=== PATIENT | female | born 1945 | race Caucasian/White ===

== ENCOUNTER 2017-12-02 13:43 | Inpatient (IN) | payer MEDICARE ==
--- NOTE | 2017-12-02 14:25 | ED Physician Chart ---
ED Chief Complaint/HPI - Patient Information Date Seen:: 12/02/17 Time Seen:: 14:16 Chief Complaint:: Aniety and depression History of Present Illness:: 72 yo female had anxiety and depression for 1 year and 3 months. She had been taking 3 medications and ativan 0.5 mg tid prn. Patient took ativan at 9am and 1pm today, still felt anxious, was unable to sit still, hit herself. Her psychiatrist Dr. Sultana Geller recommended the patient to come to [place] [facility] for further evaluation. The patient was hospitalized at [facility] for 1.5 weeks in August 2017 for anxiety and depression. Allergies:: Allergies Allergy/AdvReac Type Severity Reaction Status Date / Time No Known Allergies Allergy Verified 12/02/17 13:58 ED Review of Systems - Review of Systems General/Constitutional: No fever Skin: No skin lesions Head: No headache Eyes: No loss of vision ENT: No earache Neck: No neck pain Cardio Vascular: No chest pain Pulmonary: No SOB GI: No nausea, No vomiting Musculoskeletal: No bone or joint pain Psychiatric: Depression, Anxiety ED Past Medical History - Past Medical History Past Medical History: HTN, Dyslipidemia Social History: Non Smoker, No Alcohol, No Drug Use Surgical History: Hysterectomy, other (Right knee surgery) Psychiatricy History: Depression, Other (Anxiety ) Family Medical History - Family Member Mother History Unknown: Yes ED Physical Exam - Physical Examination General/Constitutional: Awake, Alert Head: Atraumatic Eyes: PERRL Skin: No skin lesions ENMT: Nasal exam nl Neck: No nuchal rigidity Respiratory: Clear to Auscultation, No Wheeze/Rhonchi/Rales Cardio Vascular: RRR, No murmur, gallop, rubs, NL S1 S2 GI: No tenderness/rebounding/guarding Extremities: normal strength in all extremities Neuro/Psych: No focal deficits ED Labs/Radiology/EKG Results - Radiology Results Results: CXR: no consolidation ED Assessment - Assessment General Assessment: Depression Anxiety Assessment/Comments:: CBC, CMP, UA CXR, EKG Psych evaluation ED Septic Shock - . Is Septic Shock (SBP<90, OR Lactate>4 mmol\L) present?: No ED Reassessment (Disposition) - Reassessment Reassessment Condition:: Unchanged - Patient Disposition Discharge/Transfer:: Geropsych w/in this hosp Admitting Medical Physician:: Vishal Montgomery Admitting Psych Physician:: Reynaldo Caruso
[2017-12-02 14:53] LABS: URINE MICROSCOPIC INDICATED? YES; URINE SOURCE RANDOM
[2017-12-02 14:55] LABS: % BASOPHILS 0.3 % (0.0-2.0); % EOSINOPHILS 0.8 % (0.0-5.0); % LYMPHOCYTES 24.2 % (20.0-50.0); % MONOCYTES 7.9 % (2.0-10.0); % NEUTROPHILS 66.8 % (40.0-80.0); HEMATOCRIT 41.8 % (41.0-60); LYMPHOCYTE ABSOLUTE 1.4 Th/cmm (1.5-3.0); MEAN CELL VOLUME 90.6 fl (81-100); MEAN CORPUSCULAR HEMOGLOBIN 30.3 pg (27.0-31.0); MEAN CORPUSCULAR HGB CONC 33.4 pg (28.0-36.0); MEAN PLATELET VOLUME 6.4 fl; MONOCYTE ABSOLUTE 0.5 Th/cmm (0.3-1.0); NEUTROPHILE ABSOLUTE 3.9 Th/cmm (1.8-8.0); PLATELET COUNT 224 Th/cmm (150-400); RED BLOOD COUNT 4.62 Mil/cmm (3.80-5.20); RED CELL DISTRIBUTION WIDTH 13.4 % (11.5-20.0); WHITE BLOOD COUNT 5.8 Th/cmm (4.8-10.8)
[2017-12-02 14:57] LABS: URINE BILIRUBIN NEGATIVE (NEGATIVE); URINE BLOOD TRACE (NEGATIVE); URINE GLUCOSE (UA) NEGATIVE (NEGATIVE); URINE KETONE NEGATIVE (NEGATIVE); URINE LEUKOCYTE ESTERASE NEGATIVE (NEGATIVE); URINE NITRATE NEGATIVE (NEGATIVE); URINE PH 6.5 (4.6 - 8.0); URINE PROTEIN NEGATIVE (NEGATIVE); URINE UROBILINOGEN 0.2 E.U./dL (0.2 - 1.0)
[2017-12-02 15:04] LABS: URINE BACTERIA NONE SEEN /hpf (NONE SEEN); URINE CLARITY CLEAR (CLEAR); URINE COLOR YELLOW; URINE EPITHELIAL CELLS NONE SEEN /lpf (FEW); URINE RBC 0-2 /hpf (0-5); URINE WBC NONE SEEN /hpf (0-5)
[2017-12-02 15:12] LABS: ALB/GLOB RATIO 1.1 (1.0-1.8); ALBUMIN 4.1 gm/dL (3.7-5.3); ALKALINE PHOSPHATASE 46 U/L (34-104); ANION GAP 8.4 (7.0-16.0); BILIRUBIN,TOTAL 0.4 mg/dL (0.3-1.0); BUN - UREA NITROGEN 17 mg/dL (7-25); CARBON DIOXIDE 29.9 mEq/L (21.0-31.0); CHLORIDE 106 mEq/L (98-107); CREATININE - SERUM 0.7 mg/dL (0.6-1.2); GLUCOSE 87 mg/dL (70-105); POTASSIUM SERUM 4.3 mEq/L (3.5-5.1); SGOT 18 U/L (13-39); SGPT/ALT 14 U/L (7-52); SODIUM SERUM 140 mEq/L (136-145); TOTAL PROTEIN,SERUM 7.7 gm/dL (6.0-8.3)
[2017-12-02 18:27] VITALS: BP 137/91
[2017-12-02] MEDS ORDERED: Maalox 30 mL Cup PO PRN (20:48)
[2017-12-02] MEDS ORDERED: Magnesium Hydroxide (MOM) 30 mL UDC PO PRN (20:48)
--- NOTE | 2017-12-03 08:16 | Diagnostic Imaging Report ---
Portable chest x-ray HISTORY: Shortness of breath Heart size difficult to assess with portable technique, but appears to be somewhat enlarged. No focal bony processes. No hilar or mediastinal abnormalities. IMPRESSION: 1. No acute pulmonary processes 2. Suggestion of cardiomegaly
[2017-12-03] MEDS: Multivitamin Tab PO SCH (09:39)
--- NOTE | 2017-12-03 11:35 | Internal Medicine Prog Note ---
Internal Medicine Subjective - Subjective Service Date: 12/03/17 ([id number]) Internal Medicine Objective - Results Result Diagrams: 12/02/17 14:45 12/02/17 14:45 Recent Labs: Laboratory Last Values WBC 5.8 Th/cmm (4.8-10.8) 12/02/17 14:45 RBC 4.62 Mil/cmm (3.80-5.20) 12/02/17 14:45 Hgb 14.0 gm/dL (12-16) 12/02/17 14:45 Hct 41.8 % (41.0-60) 12/02/17 14:45 MCV 90.6 fl (81-100) 12/02/17 14:45 MCH 30.3 pg (27.0-31.0) 12/02/17 14:45 MCHC Differential 33.4 pg (28.0-36.0) 12/02/17 14:45 RDW 13.4 % (11.5-20.0) 12/02/17 14:45 Plt Count 224 Th/cmm (150-400) 12/02/17 14:45 MPV 6.4 fl 12/02/17 14:45 Neutrophils % 66.8 % (40.0-80.0) 12/02/17 14:45 Lymphocytes % 24.2 % (20.0-50.0) 12/02/17 14:45 Monocytes % 7.9 % (2.0-10.0) 12/02/17 14:45 Eosinophils % 0.8 % (0.0-5.0) 12/02/17 14:45 Basophils % 0.3 % (0.0-2.0) 12/02/17 14:45 Sodium 140 mEq/L (136-145) 12/02/17 14:45 Potassium 4.3 mEq/L (3.5-5.1) 12/02/17 14:45 Chloride 106 mEq/L (98-107) 12/02/17 14:45 Carbon Dioxide 29.9 mEq/L (21.0-31.0) 12/02/17 14:45 Anion Gap 8.4 (7.0-16.0) 12/02/17 14:45 BUN 17 mg/dL (7-25) 12/02/17 14:45 Creatinine 0.7 mg/dL (0.6-1.2) 12/02/17 14:45 Est GFR ( Amer) TNP 12/02/17 14:45 Est GFR (Non-Af Amer) TNP 12/02/17 14:45 BUN/Creatinine Ratio 24.3 12/02/17 14:45 Glucose 87 mg/dL (70-105) 12/02/17 14:45 Calcium 10.0 mg/dL (8.6-10.3) 12/02/17 14:45 Total Bilirubin 0.4 mg/dL (0.3-1.0) 12/02/17 14:45 AST 18 U/L (13-39) 12/02/17 14:45 ALT 14 U/L (7-52) 12/02/17 14:45 Alkaline Phosphatase 46 U/L (34-104) 12/02/17 14:45 Total Protein 7.7 gm/dL (6.0-8.3) 12/02/17 14:45 Albumin 4.1 gm/dL (3.7-5.3) 12/02/17 14:45 Globulin 3.6 gm/dL 12/02/17 14:45 Albumin/Globulin Ratio 1.1 (1.0-1.8) 12/02/17 14:45 TSH 0.75 uIU/ml (0.34-5.60) 12/02/17 14:45 Urine Source RANDOM 12/02/17 14:30 Urine Color YELLOW 12/02/17 14:30 Urine Clarity CLEAR (CLEAR) 12/02/17 14:30 Urine pH 6.5 (4.6 - 8.0) 12/02/17 14:30 Ur Specific [place] 1.010 (1.005-1.030) 12/02/17 14:30 Urine Protein NEGATIVE mg/dL (NEGATIVE) 12/02/17 14:30 Urine Glucose (UA) NEGATIVE mg/dL (NEGATIVE) 12/02/17 14:30 Urine Ketones NEGATIVE mg/dL (NEGATIVE) 12/02/17 14:30 Urine Blood TRACE (NEGATIVE) 12/02/17 14:30 Urine Nitrate NEGATIVE (NEGATIVE) 12/02/17 14:30 Urine Bilirubin NEGATIVE (NEGATIVE) 12/02/17 14:30 Urine Urobilinogen 0.2 E.U./dL (0.2 - 1.0) 12/02/17 14:30 Ur Leukocyte Esterase NEGATIVE (NEGATIVE) 12/02/17 14:30 Urine RBC 0-2 /hpf (0-5) 12/02/17 14:30 Urine WBC NONE SEEN /hpf (0-5) 12/02/17 14:30 Ur Epithelial Cells NONE SEEN /lpf (FEW) 12/02/17 14:30 Urine Bacteria NONE SEEN /hpf (NONE SEEN) 12/02/17 14:30 - Physical Exam Vitals and I&O: Vital Signs Temp 98.2 F 12/02/17 20:00 Pulse 66 12/03/17 09:42 Resp 19 12/02/17 20:00 BP 136/89 12/03/17 09:42 Pulse Ox 95 12/02/17 20:00 Intake & Output 12/02/17 12/03/17 12/03/17 18:59 06:59 18:59 Other: Stool Characteristics Soft Active Medications: Current Medications Acetaminophen (Tylenol) 650 mg PO Q4HR PRN PRN Reason: Mild Pain / Temp above 100 Stop: 01/31/18 20:47 Al Hydrox/Mg Hydrox/Simethicone (Maalox) 30 ml PO Q4HR PRN PRN Reason: GI DISTRESS Stop: 01/31/18 20:47 Escitalopram Oxalate (Lexapro) 20 mg PO DAILY TRACI PRN Reason: Protocol Stop: 02/01/18 08:59 Last Admin: 12/03/17 09:39 Dose: 20 mg Lisinopril (Zestril) 10 mg PO DAILY TRACI Stop: 02/01/18 08:59 Last Admin: 12/03/17 09:42 Dose: 10 mg Lorazepam (Ativan) 0.5 mg PO TID PRN; Protocol PRN Reason: Anxiety Stop: 01/31/18 20:28 Last Admin: 12/03/17 10:06 Dose: 0.5 mg Magnesium Hydroxide (Milk Of Magnesia) 30 ml PO HS PRN PRN Reason: Constipation Mirtazapine (Remeron) 45 mg PO HS TRACI Stop: 01/31/18 20:59 Last Admin: 12/02/17 22:00 Dose: 45 mg Multivitamins/Vitamin C (Theragran) 1 tab PO DAILY TRACI Stop: 02/01/18 08:59 Last Admin: 12/03/17 09:39 Dose: 1 tab Risperidone (Risperdal) 0.5 mg PO HS TRACI PRN Reason: Protocol Stop: 01/31/18 20:59 Last Admin: 12/02/17 22:00 Dose: 0.5 mg Triamterene/HCTZ (Dyazide) 1 cap PO DAILY TRACI Stop: 02/01/18 08:59 Last Admin: 12/03/17 09:42 Dose: 1 cap Zolpidem Tartrate (Ambien) 5 mg PO HS PRN PRN Reason: Insomnia Stop: 01/31/18 20:47 Last Admin: 12/02/17 22:20 Dose: 5 mg Internal Medicine Assmt/Plan - Assessment Assessment: htn dyslipidemia major depression anxiety
--- NOTE | 2017-12-03 18:11 | History & Physical ---
ADMIT DATE: 12/02/2017 CHIEF COMPLAINT: Anxiety, depression. HISTORY OF PRESENT ILLNESS: This is a 72-year-old female who was admitted to the Geropsych Unit due to anxiety and depression for about a year and a half. The patient was referred by her own psychiatrist to be evaluated in the ER. The patient is now admitted here to the Geropsych Unit. PAST MEDICAL HISTORY: Hypertension, dyslipidemia. SOCIAL HISTORY: The patient denies any alcohol, illicit drug usage, or any tobacco smoking. SURGICAL HISTORY: Hysterectomy, right knee surgery. FAMILY HISTORY: Noncontributory. REVIEW OF SYSTEMS: GENERAL: Denies any fevers and chills. CARDIOVASCULAR: Denies chest pain. RESPIRATORY: Denies shortness of breath. GASTROINTESTINAL: Denies nausea, vomiting, abdominal pain. GENITOURINARY: Denies increased frequency or dysuria. NEUROLOGIC: No headaches, seizures, or syncope. All other systems are reviewed and are negative. PHYSICAL EXAMINATION: GENERAL: This is an elderly female, awake, alert, in no apparent distress. VITAL SIGNS: Temperature 98.2, heart rate 78, blood pressure 131/91, respirations 18, O2 95%. HEAD: Normocephalic, atraumatic. NECK: Supple. No mass. LUNGS: Clear bilaterally. HEART: Regular rhythm. ABDOMEN: Soft, nontender. LABORATORY DATA AND DIAGNOSTIC STUDIES: WBC 5.8, H and H 14.0 and 41.8, and platelets of 224. Sodium 140, potassium 4.3, chloride 106, BUN 17, creatinine 0.7. The patient had a chest x-ray done, which shows NAD. ASSESSMENT: 1. Hypertension. 2. Dyslipidemia. 3. Major depression. 4. Anxiety. PLAN: We will adjust the patient's hypertension medications accordingly. Safety precautions will be initiated. We will continue to monitor this patient. JOB# [id number]
--- NOTE | 2017-12-04 01:50 | Psychosocial Evaluation ---
DATE OF SERVICE: 12/03/2017 IDENTIFYING DATA: The patient is a 72-year-old woman, , and living with her family. Information obtained directly by interviewing the patient as well as reviewing the admission papers and they are reliable. JUSTIFICATION FOR HOSPITALIZATION: The patient is admitted here on a voluntary basis in view of her acute depression and anxiety and feelings of helplessness and hopelessness. CHIEF COMPLAINT: "I need some help, it has been for year and 3 months, I cannot go on like this." HISTORY OF PRESENT ILLNESS: This is one of multiple psychiatric hospitalizations for this patient who has been diagnosed to have major depressive disorder and is being followed up by ____ on an outpatient basis. The patient is reported to have been getting extremely anxious and depressed and has been still reducing. The patient has been stating that she is sick and tired of being like this and wanted to end her life and the patient's family got concerned and then brought her over here for stabilization. At the time of the hospitalization, the patient has been on Lexapro 20 mg in the morning, Remeron 45 mg at bedtime, Ativan 1.5 mg per day, and the patient is also on Risperdal 0.5 mg at bedtime. The patient has been tried on Zoloft, Paxil, and the patient has not been getting any better. The patient's coping skills at this time are noted to be extremely poor. PAST PSYCHIATRIC HISTORY: Please refer to the above. MEDICAL HISTORY AND PHYSICAL EXAMINATION: Requested to be done by Dr. Montgomery. The patient has a history of hypertension and hypercholesterolemia. ALLERGIES: The patient is not allergic to any medications. SUBSTANCE ABUSE HISTORY: None. PHYSICAL OR SEXUAL ABUSE HISTORY: None. LEGAL PROBLEMS: None. SOCIAL HISTORY: The patient is , living with her family. The patient has five children. STRENGTH AND ASSETS: The patient is motivated. MENTAL STATUS EXAMINATION: The patient is a 72-year-old, looking her stated age, superficially cooperative. Eye contact is poor. Mood is noted to be irritable. Affect is constricted. Insight and judgment at this time are noted to be still impaired. Impulse control is noted to be poor. Coping skills are noted to be poor. The patient has been having difficult time to cope with the stress. The patient is acutely anxious. The patient is also noted to be paranoid. The patient is alert and oriented x 3. The patient's insight and judgment at this time are noted to be still impaired. Impulse control seems to be poor. The patient is suicidal with plans. No homicidal ideation is noted. The patient has paranoia. The patient is fearful that something bad is going to be happen. The patient is alert and oriented x 3. DIAGNOSTIC IMPRESSION: AXIS I: Major depressive disorder, recurrent and severe with anxiety symptoms, rule out psychosis. AXIS II: None. AXIS III: Hypertension and hypercholesterolemia. IMMEDIATE TREATMENT PLAN: The patient is going to be placed on Cymbalta 30 mg and the patient's Risperdal is going to be discontinued. The patient is going to be placed on Zyprexa and Klonopin is going to be added. ESTIMATED LENGTH OF STAY: 3-5 days. DISCHARGE CRITERIA: When she no longer a threat to self or others and be able to cope up with the stress. [facility]# [id number]
[2017-12-04] MEDS: Multivitamin Tab PO SCH (08:37)
--- NOTE | 2017-12-04 12:13 | Internal Medicine Prog Note ---
Internal Medicine Subjective - Subjective Patient seen and examined:: with staff, chart reviewed Patient is:: awake, verbal, interactive, confused Per staff patient has:: no adverse event, no episodes of fall, poor appetite, confused, tolerating meds Internal Medicine Objective - Results Result Diagrams: 12/02/17 14:45 12/02/17 14:45 Recent Labs: Laboratory Last Values WBC 5.8 Th/cmm (4.8-10.8) 12/02/17 14:45 RBC 4.62 Mil/cmm (3.80-5.20) 12/02/17 14:45 Hgb 14.0 gm/dL (12-16) 12/02/17 14:45 Hct 41.8 % (41.0-60) 12/02/17 14:45 MCV 90.6 fl (81-100) 12/02/17 14:45 MCH 30.3 pg (27.0-31.0) 12/02/17 14:45 MCHC Differential 33.4 pg (28.0-36.0) 12/02/17 14:45 RDW 13.4 % (11.5-20.0) 12/02/17 14:45 Plt Count 224 Th/cmm (150-400) 12/02/17 14:45 MPV 6.4 fl 12/02/17 14:45 Neutrophils % 66.8 % (40.0-80.0) 12/02/17 14:45 Lymphocytes % 24.2 % (20.0-50.0) 12/02/17 14:45 Monocytes % 7.9 % (2.0-10.0) 12/02/17 14:45 Eosinophils % 0.8 % (0.0-5.0) 12/02/17 14:45 Basophils % 0.3 % (0.0-2.0) 12/02/17 14:45 Sodium 140 mEq/L (136-145) 12/02/17 14:45 Potassium 4.3 mEq/L (3.5-5.1) 12/02/17 14:45 Chloride 106 mEq/L (98-107) 12/02/17 14:45 Carbon Dioxide 29.9 mEq/L (21.0-31.0) 12/02/17 14:45 Anion Gap 8.4 (7.0-16.0) 12/02/17 14:45 BUN 17 mg/dL (7-25) 12/02/17 14:45 Creatinine 0.7 mg/dL (0.6-1.2) 12/02/17 14:45 Est GFR ( Amer) TNP 12/02/17 14:45 Est GFR (Non-Af Amer) TNP 12/02/17 14:45 BUN/Creatinine Ratio 24.3 12/02/17 14:45 Glucose 87 mg/dL (70-105) 12/02/17 14:45 Calcium 10.0 mg/dL (8.6-10.3) 12/02/17 14:45 Total Bilirubin 0.4 mg/dL (0.3-1.0) 12/02/17 14:45 AST 18 U/L (13-39) 12/02/17 14:45 ALT 14 U/L (7-52) 12/02/17 14:45 Alkaline Phosphatase 46 U/L (34-104) 12/02/17 14:45 Total Protein 7.7 gm/dL (6.0-8.3) 12/02/17 14:45 Albumin 4.1 gm/dL (3.7-5.3) 12/02/17 14:45 Globulin 3.6 gm/dL 12/02/17 14:45 Albumin/Globulin Ratio 1.1 (1.0-1.8) 12/02/17 14:45 TSH 0.75 uIU/ml (0.34-5.60) 12/02/17 14:45 Urine Source RANDOM 12/02/17 14:30 Urine Color YELLOW 12/02/17 14:30 Urine Clarity CLEAR (CLEAR) 12/02/17 14:30 Urine pH 6.5 (4.6 - 8.0) 12/02/17 14:30 Ur Specific [place] 1.010 (1.005-1.030) 12/02/17 14:30 Urine Protein NEGATIVE mg/dL (NEGATIVE) 12/02/17 14:30 Urine Glucose (UA) NEGATIVE mg/dL (NEGATIVE) 12/02/17 14:30 Urine Ketones NEGATIVE mg/dL (NEGATIVE) 12/02/17 14:30 Urine Blood TRACE (NEGATIVE) 12/02/17 14:30 Urine Nitrate NEGATIVE (NEGATIVE) 12/02/17 14:30 Urine Bilirubin NEGATIVE (NEGATIVE) 12/02/17 14:30 Urine Urobilinogen 0.2 E.U./dL (0.2 - 1.0) 12/02/17 14:30 Ur Leukocyte Esterase NEGATIVE (NEGATIVE) 12/02/17 14:30 Urine RBC 0-2 /hpf (0-5) 12/02/17 14:30 Urine WBC NONE SEEN /hpf (0-5) 12/02/17 14:30 Ur Epithelial Cells NONE SEEN /lpf (FEW) 12/02/17 14:30 Urine Bacteria NONE SEEN /hpf (NONE SEEN) 12/02/17 14:30 - Physical Exam Vitals and I&O: Vital Signs Temp 98.4 F 12/04/17 06:12 Pulse 68 12/04/17 08:37 Resp 18 12/04/17 06:12 BP 122/78 12/04/17 08:45 Pulse Ox 96 12/04/17 06:12 Intake & Output 12/03/17 12/04/17 12/04/17 18:59 06:59 18:59 Intake Total 480 Balance 480 Intake: Oral 480 Other: # Voids 1 Stool Characteristics Soft Active Medications: Current Medications Acetaminophen (Tylenol) 650 mg PO Q4HR PRN PRN Reason: Mild Pain / Temp above 100 Stop: 01/31/18 20:47 Al Hydrox/Mg Hydrox/Simethicone (Maalox) 30 ml PO Q4HR PRN PRN Reason: GI DISTRESS Stop: 01/31/18 20:47 Escitalopram Oxalate (Lexapro) 20 mg PO DAILY TRACI PRN Reason: Protocol Stop: 02/01/18 08:59 Last Admin: 12/04/17 08:37 Dose: 20 mg Lisinopril (Zestril) 10 mg PO DAILY TRACI Stop: 02/01/18 08:59 Last Admin: 12/04/17 08:37 Dose: 10 mg Lorazepam (Ativan) 0.5 mg PO TID PRN; Protocol PRN Reason: Anxiety Stop: 01/31/18 20:28 Last Admin: 12/04/17 06:56 Dose: 0.5 mg Magnesium Hydroxide (Milk Of Magnesia) 30 ml PO HS PRN PRN Reason: Constipation Mirtazapine (Remeron) 45 mg PO HS TRACI Stop: 01/31/18 20:59 Last Admin: 12/03/17 21:21 Dose: 45 mg Multivitamins/Vitamin C (Theragran) 1 tab PO DAILY TRACI Stop: 02/01/18 08:59 Last Admin: 12/04/17 08:37 Dose: 1 tab Risperidone (Risperdal) 0.5 mg PO HS TRACI PRN Reason: Protocol Stop: 01/31/18 20:59 Last Admin: 12/03/17 21:21 Dose: 0.5 mg Triamterene/HCTZ (Dyazide) 1 cap PO DAILY TRACI Stop: 02/01/18 08:59 Last Admin: 12/04/17 08:45 Dose: 1 cap Zolpidem Tartrate (Ambien) 5 mg PO HS PRN PRN Reason: Insomnia Stop: 01/31/18 20:47 Last Admin: 12/03/17 21:21 Dose: 5 mg General: demented HEENT: NC/AT, PERRLA Neck: Supple, No JVD, No LAD Lungs: CTAB Cardiovascular: RRR, Normal S1, Normal S2, with murmur Abdomen: soft, non-tender, positive bowel sound Extremities: excoriation Neurological: no change Internal Medicine Assmt/Plan - Assessment Assessment: - Assessment Assessment: htn dyslipidemia major depression anxiety - Plan Plan: cont on bp meds cont on statin fall precation dvt and gastritis prophylaxis maryann stout
--- NOTE | 2017-12-05 01:31 | Progress Notes ---
DATE: 12/04/2017 SUBJECTIVE: Staff was spoken to. The patient is interviewed. Mood is noted to be depressed. Affect is constricted. The patient is isolative and withdrawn. Insight and judgment at this time are noted to be still impaired. Impulse control seems to be poor. The patient is still insisting on ending her life. No side effects to the medications are noted. The patient is isolative and withdrawn. The patient has been presenting with a lot of anxiety. ASSESSMENT: The patient is still severely depressed and suicidal. PLAN: To continue the patient with the supportive therapy. I encouraged the patient to verbalize the concerns rather than to act out. JOB# [id number]
[2017-12-05] MEDS: Multivitamin Tab PO SCH (08:50)
--- NOTE | 2017-12-05 13:51 | Internal Medicine Prog Note ---
Internal Medicine Subjective - Subjective Service Date: 12/05/17 Patient is:: awake, verbal, interactive, confused Per staff patient has:: no adverse event, no episodes of fall, poor appetite, confused, tolerating meds Internal Medicine Objective - Results Result Diagrams: 12/02/17 14:45 12/02/17 14:45 Recent Labs: Laboratory Last Values WBC 5.8 Th/cmm (4.8-10.8) 12/02/17 14:45 RBC 4.62 Mil/cmm (3.80-5.20) 12/02/17 14:45 Hgb 14.0 gm/dL (12-16) 12/02/17 14:45 Hct 41.8 % (41.0-60) 12/02/17 14:45 MCV 90.6 fl (81-100) 12/02/17 14:45 MCH 30.3 pg (27.0-31.0) 12/02/17 14:45 MCHC Differential 33.4 pg (28.0-36.0) 12/02/17 14:45 RDW 13.4 % (11.5-20.0) 12/02/17 14:45 Plt Count 224 Th/cmm (150-400) 12/02/17 14:45 MPV 6.4 fl 12/02/17 14:45 Neutrophils % 66.8 % (40.0-80.0) 12/02/17 14:45 Lymphocytes % 24.2 % (20.0-50.0) 12/02/17 14:45 Monocytes % 7.9 % (2.0-10.0) 12/02/17 14:45 Eosinophils % 0.8 % (0.0-5.0) 12/02/17 14:45 Basophils % 0.3 % (0.0-2.0) 12/02/17 14:45 Sodium 140 mEq/L (136-145) 12/02/17 14:45 Potassium 4.3 mEq/L (3.5-5.1) 12/02/17 14:45 Chloride 106 mEq/L (98-107) 12/02/17 14:45 Carbon Dioxide 29.9 mEq/L (21.0-31.0) 12/02/17 14:45 Anion Gap 8.4 (7.0-16.0) 12/02/17 14:45 BUN 17 mg/dL (7-25) 12/02/17 14:45 Creatinine 0.7 mg/dL (0.6-1.2) 12/02/17 14:45 Est GFR ( Amer) TNP 12/02/17 14:45 Est GFR (Non-Af Amer) TNP 12/02/17 14:45 BUN/Creatinine Ratio 24.3 12/02/17 14:45 Glucose 87 mg/dL (70-105) 12/02/17 14:45 Calcium 10.0 mg/dL (8.6-10.3) 12/02/17 14:45 Total Bilirubin 0.4 mg/dL (0.3-1.0) 12/02/17 14:45 AST 18 U/L (13-39) 12/02/17 14:45 ALT 14 U/L (7-52) 12/02/17 14:45 Alkaline Phosphatase 46 U/L (34-104) 12/02/17 14:45 Total Protein 7.7 gm/dL (6.0-8.3) 12/02/17 14:45 Albumin 4.1 gm/dL (3.7-5.3) 12/02/17 14:45 Globulin 3.6 gm/dL 12/02/17 14:45 Albumin/Globulin Ratio 1.1 (1.0-1.8) 12/02/17 14:45 TSH 0.75 uIU/ml (0.34-5.60) 12/02/17 14:45 Urine Source RANDOM 12/02/17 14:30 Urine Color YELLOW 12/02/17 14:30 Urine Clarity CLEAR (CLEAR) 12/02/17 14:30 Urine pH 6.5 (4.6 - 8.0) 12/02/17 14:30 Ur Specific [place] 1.010 (1.005-1.030) 12/02/17 14:30 Urine Protein NEGATIVE mg/dL (NEGATIVE) 12/02/17 14:30 Urine Glucose (UA) NEGATIVE mg/dL (NEGATIVE) 12/02/17 14:30 Urine Ketones NEGATIVE mg/dL (NEGATIVE) 12/02/17 14:30 Urine Blood TRACE (NEGATIVE) 12/02/17 14:30 Urine Nitrate NEGATIVE (NEGATIVE) 12/02/17 14:30 Urine Bilirubin NEGATIVE (NEGATIVE) 12/02/17 14:30 Urine Urobilinogen 0.2 E.U./dL (0.2 - 1.0) 12/02/17 14:30 Ur Leukocyte Esterase NEGATIVE (NEGATIVE) 12/02/17 14:30 Urine RBC 0-2 /hpf (0-5) 12/02/17 14:30 Urine WBC NONE SEEN /hpf (0-5) 12/02/17 14:30 Ur Epithelial Cells NONE SEEN /lpf (FEW) 12/02/17 14:30 Urine Bacteria NONE SEEN /hpf (NONE SEEN) 12/02/17 14:30 - Physical Exam Vitals and I&O: Vital Signs Temp 98.5 F 12/05/17 05:59 Pulse 68 12/05/17 08:49 Resp 20 12/05/17 05:59 BP 121/85 12/05/17 08:49 Pulse Ox 96 12/05/17 05:59 Intake & Output 12/04/17 12/05/17 12/05/17 18:59 06:59 18:59 Intake Total 240 Balance 240 Weight (lbs) 128 lb Intake: Oral 240 Other: # Voids 3 # Bowel Movements 0 Active Medications: Current Medications Acetaminophen (Tylenol) 650 mg PO Q4HR PRN PRN Reason: Mild Pain / Temp above 100 Stop: 01/31/18 20:47 Al Hydrox/Mg Hydrox/Simethicone (Maalox) 30 ml PO Q4HR PRN PRN Reason: GI DISTRESS Stop: 01/31/18 20:47 Clonazepam (Klonopin) 0.5 mg PO BID TRACI PRN Reason: Protocol Stop: 02/02/18 16:59 Last Admin: 12/05/17 08:49 Dose: 0.5 mg Duloxetine HCl (Cymbalta) 30 mg PO DAILY TRACI PRN Reason: Protocol Stop: 02/03/18 08:59 Last Admin: 12/05/17 08:49 Dose: 30 mg Lisinopril (Zestril) 10 mg PO DAILY TRACI Stop: 02/01/18 08:59 Last Admin: 12/05/17 08:49 Dose: 10 mg Lorazepam (Ativan) 0.5 mg PO TID PRN; Protocol PRN Reason: Anxiety Stop: 01/31/18 20:28 Last Admin: 12/05/17 07:45 Dose: 0.5 mg Magnesium Hydroxide (Milk Of Magnesia) 30 ml PO HS PRN PRN Reason: Constipation Mirtazapine (Remeron) 30 mg PO HS TRACI PRN Reason: Protocol Stop: 02/02/18 20:59 Last Admin: 12/04/17 21:15 Dose: 30 mg Multivitamins/Vitamin C (Theragran) 1 tab PO DAILY TRACI Stop: 02/01/18 08:59 Last Admin: 12/05/17 08:50 Dose: 1 tab Olanzapine (Zyprexa) 2.5 mg PO HS TRACI PRN Reason: Protocol Stop: 02/02/18 20:59 Last Admin: 12/04/17 21:15 Dose: 2.5 mg Triamterene/HCTZ (Dyazide) 1 cap PO DAILY TRACI Stop: 02/01/18 08:59 Last Admin: 12/04/17 08:45 Dose: 1 cap Zolpidem Tartrate (Ambien) 5 mg PO HS PRN PRN Reason: Insomnia Stop: 01/31/18 20:47 Last Admin: 12/04/17 21:15 Dose: 5 mg General: demented HEENT: NC/AT, PERRLA Neck: Supple, No JVD, No LAD Lungs: CTAB Cardiovascular: RRR, Normal S1, Normal S2, with murmur Abdomen: soft, non-tender, positive bowel sound Extremities: excoriation Neurological: no change Internal Medicine Assmt/Plan - Assessment Assessment: htn dyslipidemia major depression anxiety - Plan Plan: fall precautions adjust bp meds accordingly continue current plan of care
--- NOTE | 2017-12-06 04:28 | Progress Notes ---
DATE: 12/05/2017 SUBJECTIVE: Staff was spoken to. The patient is interviewed. Mood is noted to be depressed. Affect is constricted. The patient's insight and judgment are noted to be still impaired. The patient is isolative and withdrawn. The patient feels that she is a burden to the family. Coping skills are noted to be very poor. The patient has been changed on the medications, but the patient is stating that she has been having still a lot of anxiety and the patient's family has been spoken to in detail. ASSESSMENT: The patient is still depressed and anxious. PLAN: To continue the patient with the current medications and follow the patient with the supportive therapy. JOB# [id number]
--- NOTE | 2017-12-06 13:42 | Internal Medicine Prog Note ---
Internal Medicine Subjective - Subjective Service Date: 12/06/17 Patient is:: awake, verbal, interactive, confused Per staff patient has:: no adverse event, no episodes of fall, poor appetite, confused, tolerating meds Internal Medicine Objective - Results Result Diagrams: 12/02/17 14:45 12/02/17 14:45 Recent Labs: Laboratory Last Values WBC 5.8 Th/cmm (4.8-10.8) 12/02/17 14:45 RBC 4.62 Mil/cmm (3.80-5.20) 12/02/17 14:45 Hgb 14.0 gm/dL (12-16) 12/02/17 14:45 Hct 41.8 % (41.0-60) 12/02/17 14:45 MCV 90.6 fl (81-100) 12/02/17 14:45 MCH 30.3 pg (27.0-31.0) 12/02/17 14:45 MCHC Differential 33.4 pg (28.0-36.0) 12/02/17 14:45 RDW 13.4 % (11.5-20.0) 12/02/17 14:45 Plt Count 224 Th/cmm (150-400) 12/02/17 14:45 MPV 6.4 fl 12/02/17 14:45 Neutrophils % 66.8 % (40.0-80.0) 12/02/17 14:45 Lymphocytes % 24.2 % (20.0-50.0) 12/02/17 14:45 Monocytes % 7.9 % (2.0-10.0) 12/02/17 14:45 Eosinophils % 0.8 % (0.0-5.0) 12/02/17 14:45 Basophils % 0.3 % (0.0-2.0) 12/02/17 14:45 Sodium 140 mEq/L (136-145) 12/02/17 14:45 Potassium 4.3 mEq/L (3.5-5.1) 12/02/17 14:45 Chloride 106 mEq/L (98-107) 12/02/17 14:45 Carbon Dioxide 29.9 mEq/L (21.0-31.0) 12/02/17 14:45 Anion Gap 8.4 (7.0-16.0) 12/02/17 14:45 BUN 17 mg/dL (7-25) 12/02/17 14:45 Creatinine 0.7 mg/dL (0.6-1.2) 12/02/17 14:45 Est GFR ( Amer) TNP 12/02/17 14:45 Est GFR (Non-Af Amer) TNP 12/02/17 14:45 BUN/Creatinine Ratio 24.3 12/02/17 14:45 Glucose 87 mg/dL (70-105) 12/02/17 14:45 Calcium 10.0 mg/dL (8.6-10.3) 12/02/17 14:45 Total Bilirubin 0.4 mg/dL (0.3-1.0) 12/02/17 14:45 AST 18 U/L (13-39) 12/02/17 14:45 ALT 14 U/L (7-52) 12/02/17 14:45 Alkaline Phosphatase 46 U/L (34-104) 12/02/17 14:45 Total Protein 7.7 gm/dL (6.0-8.3) 12/02/17 14:45 Albumin 4.1 gm/dL (3.7-5.3) 12/02/17 14:45 Globulin 3.6 gm/dL 12/02/17 14:45 Albumin/Globulin Ratio 1.1 (1.0-1.8) 12/02/17 14:45 TSH 0.75 uIU/ml (0.34-5.60) 12/02/17 14:45 Urine Source RANDOM 12/02/17 14:30 Urine Color YELLOW 12/02/17 14:30 Urine Clarity CLEAR (CLEAR) 12/02/17 14:30 Urine pH 6.5 (4.6 - 8.0) 12/02/17 14:30 Ur Specific [place] 1.010 (1.005-1.030) 12/02/17 14:30 Urine Protein NEGATIVE mg/dL (NEGATIVE) 12/02/17 14:30 Urine Glucose (UA) NEGATIVE mg/dL (NEGATIVE) 12/02/17 14:30 Urine Ketones NEGATIVE mg/dL (NEGATIVE) 12/02/17 14:30 Urine Blood TRACE (NEGATIVE) 12/02/17 14:30 Urine Nitrate NEGATIVE (NEGATIVE) 12/02/17 14:30 Urine Bilirubin NEGATIVE (NEGATIVE) 12/02/17 14:30 Urine Urobilinogen 0.2 E.U./dL (0.2 - 1.0) 12/02/17 14:30 Ur Leukocyte Esterase NEGATIVE (NEGATIVE) 12/02/17 14:30 Urine RBC 0-2 /hpf (0-5) 12/02/17 14:30 Urine WBC NONE SEEN /hpf (0-5) 12/02/17 14:30 Ur Epithelial Cells NONE SEEN /lpf (FEW) 12/02/17 14:30 Urine Bacteria NONE SEEN /hpf (NONE SEEN) 12/02/17 14:30 - Physical Exam Vitals and I&O: Vital Signs Temp 98.3 F 12/05/17 15:17 Pulse 77 12/05/17 15:17 Resp 20 12/05/17 15:17 BP 121/85 12/05/17 18:32 Pulse Ox 97 12/05/17 15:17 Intake & Output 12/05/17 12/06/17 12/06/17 18:59 06:59 18:59 Intake Total 1200 Balance 1200 Intake: Oral 1200 Other: # Voids 3 # Bowel Movements 1 Active Medications: Current Medications Acetaminophen (Tylenol) 650 mg PO Q4HR PRN PRN Reason: Mild Pain / Temp above 100 Stop: 01/31/18 20:47 Al Hydrox/Mg Hydrox/Simethicone (Maalox) 30 ml PO Q4HR PRN PRN Reason: GI DISTRESS Stop: 01/31/18 20:47 Clonazepam (Klonopin) 0.5 mg PO BID TRACI PRN Reason: Protocol Stop: 02/02/18 16:59 Last Admin: 12/05/17 16:52 Dose: 0.5 mg Duloxetine HCl (Cymbalta) 30 mg PO DAILY TRACI PRN Reason: Protocol Stop: 02/03/18 08:59 Last Admin: 12/05/17 08:49 Dose: 30 mg Lisinopril (Zestril) 10 mg PO DAILY TRACI Stop: 02/01/18 08:59 Last Admin: 12/05/17 08:49 Dose: 10 mg Lorazepam (Ativan) 0.5 mg PO TID PRN; Protocol PRN Reason: Anxiety Stop: 01/31/18 20:28 Last Admin: 12/05/17 07:45 Dose: 0.5 mg Magnesium Hydroxide (Milk Of Magnesia) 30 ml PO HS PRN PRN Reason: Constipation Mirtazapine (Remeron) 30 mg PO HS TRACI PRN Reason: Protocol Stop: 02/02/18 20:59 Last Admin: 12/05/17 20:44 Dose: 30 mg Multivitamins/Vitamin C (Theragran) 1 tab PO DAILY TRACI Stop: 02/01/18 08:59 Last Admin: 12/05/17 08:50 Dose: 1 tab Olanzapine (Zyprexa) 2.5 mg PO HS TRACI PRN Reason: Protocol Stop: 02/02/18 20:59 Last Admin: 12/05/17 20:43 Dose: 2.5 mg Triamterene/HCTZ (Dyazide) 1 cap PO DAILY TRACI Stop: 02/01/18 08:59 Last Admin: 12/05/17 18:32 Dose: Not Given Zolpidem Tartrate (Ambien) 5 mg PO HS PRN PRN Reason: Insomnia Stop: 01/31/18 20:47 Last Admin: 12/04/17 21:15 Dose: 5 mg General: demented HEENT: NC/AT, PERRLA Neck: Supple, No JVD, No LAD Lungs: CTAB Cardiovascular: RRR, Normal S1, Normal S2, with murmur Abdomen: soft, non-tender, positive bowel sound Extremities: excoriation Neurological: no change Internal Medicine Assmt/Plan - Assessment Assessment: htn dyslipidemia major depression anxiety - Plan Plan: fall precautions adjust bp meds accordingly continue current plan of care
[2017-12-06] MEDS: Multivitamin Tab PO SCH (17:33)
--- NOTE | 2017-12-07 04:25 | Progress Notes ---
DATE: 12/06/2017 SUBJECTIVE: Staff was spoken to. The patient is interviewed. Mood is noted to be depressed. Affect is constricted. The patient is still having difficult time to cope with the stress. No side effects to medications are noted. The patient has been able to be redirected today and the patient is stating that she has been trying to deal with her anxiety. No side effects to the medications are noted at this time. ASSESSMENT: The patient is still depressed and has been feeling that she is a burden to the family and wants to end her life. PLAN: To continue the patient with the supportive therapy. I encouraged the patient to verbalize the concerns rather than to act out. JOB# [id number]
[2017-12-07] MEDS: Multivitamin Tab PO SCH (10:00)
--- NOTE | 2017-12-07 15:58 | Internal Medicine Prog Note ---
Internal Medicine Subjective - Subjective Service Date: 12/07/17 Patient is:: awake, verbal, interactive, confused Per staff patient has:: no adverse event, no episodes of fall, poor appetite, confused, tolerating meds Internal Medicine Objective - Results Result Diagrams: 12/02/17 14:45 12/02/17 14:45 Recent Labs: Laboratory Last Values WBC 5.8 Th/cmm (4.8-10.8) 12/02/17 14:45 RBC 4.62 Mil/cmm (3.80-5.20) 12/02/17 14:45 Hgb 14.0 gm/dL (12-16) 12/02/17 14:45 Hct 41.8 % (41.0-60) 12/02/17 14:45 MCV 90.6 fl (81-100) 12/02/17 14:45 MCH 30.3 pg (27.0-31.0) 12/02/17 14:45 MCHC Differential 33.4 pg (28.0-36.0) 12/02/17 14:45 RDW 13.4 % (11.5-20.0) 12/02/17 14:45 Plt Count 224 Th/cmm (150-400) 12/02/17 14:45 MPV 6.4 fl 12/02/17 14:45 Neutrophils % 66.8 % (40.0-80.0) 12/02/17 14:45 Lymphocytes % 24.2 % (20.0-50.0) 12/02/17 14:45 Monocytes % 7.9 % (2.0-10.0) 12/02/17 14:45 Eosinophils % 0.8 % (0.0-5.0) 12/02/17 14:45 Basophils % 0.3 % (0.0-2.0) 12/02/17 14:45 Sodium 140 mEq/L (136-145) 12/02/17 14:45 Potassium 4.3 mEq/L (3.5-5.1) 12/02/17 14:45 Chloride 106 mEq/L (98-107) 12/02/17 14:45 Carbon Dioxide 29.9 mEq/L (21.0-31.0) 12/02/17 14:45 Anion Gap 8.4 (7.0-16.0) 12/02/17 14:45 BUN 17 mg/dL (7-25) 12/02/17 14:45 Creatinine 0.7 mg/dL (0.6-1.2) 12/02/17 14:45 Est GFR ( Amer) TNP 12/02/17 14:45 Est GFR (Non-Af Amer) TNP 12/02/17 14:45 BUN/Creatinine Ratio 24.3 12/02/17 14:45 Glucose 87 mg/dL (70-105) 12/02/17 14:45 Calcium 10.0 mg/dL (8.6-10.3) 12/02/17 14:45 Total Bilirubin 0.4 mg/dL (0.3-1.0) 12/02/17 14:45 AST 18 U/L (13-39) 12/02/17 14:45 ALT 14 U/L (7-52) 12/02/17 14:45 Alkaline Phosphatase 46 U/L (34-104) 12/02/17 14:45 Total Protein 7.7 gm/dL (6.0-8.3) 12/02/17 14:45 Albumin 4.1 gm/dL (3.7-5.3) 12/02/17 14:45 Globulin 3.6 gm/dL 12/02/17 14:45 Albumin/Globulin Ratio 1.1 (1.0-1.8) 12/02/17 14:45 TSH 0.75 uIU/ml (0.34-5.60) 12/02/17 14:45 Urine Source RANDOM 12/02/17 14:30 Urine Color YELLOW 12/02/17 14:30 Urine Clarity CLEAR (CLEAR) 12/02/17 14:30 Urine pH 6.5 (4.6 - 8.0) 12/02/17 14:30 Ur Specific [place] 1.010 (1.005-1.030) 12/02/17 14:30 Urine Protein NEGATIVE mg/dL (NEGATIVE) 12/02/17 14:30 Urine Glucose (UA) NEGATIVE mg/dL (NEGATIVE) 12/02/17 14:30 Urine Ketones NEGATIVE mg/dL (NEGATIVE) 12/02/17 14:30 Urine Blood TRACE (NEGATIVE) 12/02/17 14:30 Urine Nitrate NEGATIVE (NEGATIVE) 12/02/17 14:30 Urine Bilirubin NEGATIVE (NEGATIVE) 12/02/17 14:30 Urine Urobilinogen 0.2 E.U./dL (0.2 - 1.0) 12/02/17 14:30 Ur Leukocyte Esterase NEGATIVE (NEGATIVE) 12/02/17 14:30 Urine RBC 0-2 /hpf (0-5) 12/02/17 14:30 Urine WBC NONE SEEN /hpf (0-5) 12/02/17 14:30 Ur Epithelial Cells NONE SEEN /lpf (FEW) 12/02/17 14:30 Urine Bacteria NONE SEEN /hpf (NONE SEEN) 12/02/17 14:30 - Physical Exam Vitals and I&O: Vital Signs Temp 98.5 F 12/07/17 15:05 Pulse 70 12/07/17 15:05 Resp 18 12/07/17 15:05 BP 103/62 12/07/17 15:05 Pulse Ox 98 12/07/17 15:05 Intake & Output 12/06/17 12/07/17 12/07/17 18:59 06:59 18:59 Intake Total 1200 Balance 1200 Intake: Oral 1200 Other: # Voids 3 # Bowel Movements 1 Active Medications: Current Medications Acetaminophen (Tylenol) 650 mg PO Q4HR PRN PRN Reason: Mild Pain / Temp above 100 Stop: 01/31/18 20:47 Al Hydrox/Mg Hydrox/Simethicone (Maalox) 30 ml PO Q4HR PRN PRN Reason: GI DISTRESS Stop: 01/31/18 20:47 Clonazepam (Klonopin) 0.5 mg PO BID TRACI PRN Reason: Protocol Stop: 02/02/18 16:59 Last Admin: 12/07/17 10:00 Dose: 0.5 mg Duloxetine HCl (Cymbalta) 30 mg PO DAILY TRACI PRN Reason: Protocol Stop: 02/03/18 08:59 Last Admin: 12/07/17 10:00 Dose: 30 mg Lisinopril (Zestril) 10 mg PO DAILY TRACI Stop: 02/01/18 08:59 Last Admin: 12/07/17 10:00 Dose: 10 mg Lorazepam (Ativan) 0.5 mg PO TID PRN; Protocol PRN Reason: Anxiety Stop: 01/31/18 20:28 Last Admin: 12/05/17 07:45 Dose: 0.5 mg Magnesium Hydroxide (Milk Of Magnesia) 30 ml PO HS PRN PRN Reason: Constipation Mirtazapine (Remeron) 30 mg PO HS TRACI PRN Reason: Protocol Stop: 02/02/18 20:59 Last Admin: 12/06/17 21:22 Dose: 30 mg Multivitamins/Vitamin C (Theragran) 1 tab PO DAILY TRACI Stop: 02/01/18 08:59 Last Admin: 12/07/17 10:00 Dose: 1 tab Olanzapine (Zyprexa) 2.5 mg PO HS TRACI PRN Reason: Protocol Stop: 02/02/18 20:59 Last Admin: 12/06/17 21:22 Dose: 2.5 mg Triamterene/HCTZ (Dyazide) 1 cap PO DAILY TRACI Stop: 02/01/18 08:59 Last Admin: 12/07/17 10:00 Dose: Not Given Zolpidem Tartrate (Ambien) 5 mg PO HS PRN PRN Reason: Insomnia Stop: 01/31/18 20:47 Last Admin: 12/04/17 21:15 Dose: 5 mg General: demented HEENT: NC/AT, PERRLA Neck: Supple, No JVD, No LAD Lungs: CTAB Cardiovascular: RRR, Normal S1, Normal S2, with murmur Abdomen: soft, non-tender, positive bowel sound Extremities: excoriation Neurological: no change Internal Medicine Assmt/Plan - Assessment Assessment: htn dyslipidemia major depression anxiety - Plan Plan: fall precautions adjust bp meds accordingly continue current plan of care
--- NOTE | 2017-12-07 22:26 | Progress Notes ---
DATE: 12/07/2017 SUBJECTIVE: Staff was spoken to. The patient is interviewed. Mood is noted to be depressed. Affect is constricted. The patient is stating that with the medication she has been sleeping a little bit okay. The patient's coping skills are noted to be still poor. The patient is reporting that the medication has been helping her to some extent with the anxiety. The patient is still depressed and suicidal ideation is noted. No plans are noted today. ASSESSMENT: The patient is still depressed. PLAN: To continue the patient with the supportive therapy. I encourage the patient to verbalize the concerns rather than to act out. [facility]# [id number]
[2017-12-08] MEDS: Multivitamin Tab PO SCH (10:09)
--- NOTE | 2017-12-08 14:19 | Consultation ---
DATE OF CONSULTATION: 12/07/2017 ADMITTING PHYSICIAN: Reynaldo Caruso M.D. TYPE OF CONSULTATION: Psychology. HISTORY OF PRESENT ILLNESS: The patient is being seen by request from the staff with respect to the patient's depression. The patient apparently is tearful and hopeless. The patient is seen with a Eritrean speaking SALES DIRECTOR to interpret the patient's responses since the patient is Eritrean speaking only. According to record review, the patient is a 72-year-old female who lives at home with her family. The patient's daughter is very involved in the patient's care. The patient was able to respond to some of the clinical questions with the assistance of the Eritrean speaking staff member as bilingual interpreter. The patient was admitted on a voluntary basis due to acute depression and anxiety. Upon interview, the patient reports that she feels helpless and hopeless. The patient is having difficulty coping with phase of life issues and the decline in her quality of life. The patient also is worried about her medical condition as well as issues of mortality. The patient reported that she cannot go on like this because it has been going on too long. The patient had been diagnosed with major depressive disorder, recurrent and severe. The patient is being seen by physician on an outpatient basis. The patient reports that she is worried and anxious and that she also has a "wish to ". The family was concerned and brought her here for stabilization. PAST MEDICAL HISTORY: Please see history by Dr. Montgomery. PAST PSYCHIATRIC HISTORY: The patient has a history of major depression and anxiety. CURRENT MEDICATIONS: Please see admission medication reconciliation. ALLERGIES: No known allergies. SUBSTANCE ABUSE HISTORY: None. PSYCHOSOCIAL HISTORY: The patient is and lives with her and her family. The patient has 5 children. The patient's family is very involved in her care. The patient states that she is Roman Catholic and I believe she responded that she is Mormon. The patient did not answer questions about occupational or educational history. The patient denied any history of physical or sexual abuse. MENTAL STATUS EXAMINATION: The patient appears to be her stated age. The patient's attitude is cooperative. Eye contact is poor. The patient presents as withdrawn. Mood is mildly irritable and depressed as well as anxious. Affect is mood congruent, labile and tearful. Thought process shows to be depressogenic and confused at times. The patient states that she is fearful that something bad is going to happen. The patient endorsed the item of feeling like there is impending doom. The patient stated hoplessness and helplessness and futility. The patient verbalized a wish to . There is passive suicidal ideation, but no homicidal ideation. The patient is having difficulty with coping strategies for phase of life and coping with stress. The patient's behavior has been compliant with care and treatment on the unit and is redirectable. Impulse control is fair to poor. Concentration is impaired. The patient had difficulty sustaining focus and attention and needed to be cognitively redirected. The patient continued to perseverate on fearful future events. There is some evidence of some paranoid ideation. The patient did not participate in the memory assessment. Memory needs further evaluation. The patient's sensorium is alert and oriented to person and place, but not date or time. The patient did not participate in the interpretation of proverbs. Insight is poor. Judgment is poor. DIAGNOSTIC IMPRESSION: AXIS I: 1.Major depressive disorder, recurrent, severe with anxiety; 2. Anxiety disorder not otherwise specified. Rule out psychosis. AXIS II: Deferred. AXIS III: Please see history and physical by Dr. Montgomery. PLAN: The patient has been seen by Dr. Caruso for psychiatric evaluation and for the management of the patient's psychotropic medications. The patient has been started on Cymbalta 30 mg and continued on Risperdal. The patient also was started on Zyprexa and Klonopin. We will provide coping strategies for phase of life issues. We will provide the opportunity for the patient to verbally agree to no self-harm and to confide in staff with respect to any suicidal thoughts or plans or intention. We will provide insight oriented therapy including ole-based beliefs for coping to decrease the patient's depression and assist her in adjustment to this phase of life as well as her medical condition. The patient has extremely good family support which will help immensely with the patient's mood and outlook We will continue to provide supportive therapy and this bond underwriter will follow up one time prior to discharge to review coping strategies with the assistance of a Eritrean speaking staff member to interpret. Thank you, Dr. Caruso for this consult. [facility]# [id number] [facility]
--- NOTE | 2017-12-08 14:36 | Internal Medicine Prog Note ---
Internal Medicine Subjective - Subjective Service Date: 12/08/17 Patient is:: awake, verbal, interactive, confused Per staff patient has:: no adverse event, no episodes of fall, poor appetite, confused, tolerating meds Internal Medicine Objective - Results Result Diagrams: 12/02/17 14:45 12/02/17 14:45 Recent Labs: Laboratory Last Values WBC 5.8 Th/cmm (4.8-10.8) 12/02/17 14:45 RBC 4.62 Mil/cmm (3.80-5.20) 12/02/17 14:45 Hgb 14.0 gm/dL (12-16) 12/02/17 14:45 Hct 41.8 % (41.0-60) 12/02/17 14:45 MCV 90.6 fl (81-100) 12/02/17 14:45 MCH 30.3 pg (27.0-31.0) 12/02/17 14:45 MCHC Differential 33.4 pg (28.0-36.0) 12/02/17 14:45 RDW 13.4 % (11.5-20.0) 12/02/17 14:45 Plt Count 224 Th/cmm (150-400) 12/02/17 14:45 MPV 6.4 fl 12/02/17 14:45 Neutrophils % 66.8 % (40.0-80.0) 12/02/17 14:45 Lymphocytes % 24.2 % (20.0-50.0) 12/02/17 14:45 Monocytes % 7.9 % (2.0-10.0) 12/02/17 14:45 Eosinophils % 0.8 % (0.0-5.0) 12/02/17 14:45 Basophils % 0.3 % (0.0-2.0) 12/02/17 14:45 Sodium 140 mEq/L (136-145) 12/02/17 14:45 Potassium 4.3 mEq/L (3.5-5.1) 12/02/17 14:45 Chloride 106 mEq/L (98-107) 12/02/17 14:45 Carbon Dioxide 29.9 mEq/L (21.0-31.0) 12/02/17 14:45 Anion Gap 8.4 (7.0-16.0) 12/02/17 14:45 BUN 17 mg/dL (7-25) 12/02/17 14:45 Creatinine 0.7 mg/dL (0.6-1.2) 12/02/17 14:45 Est GFR ( Amer) TNP 12/02/17 14:45 Est GFR (Non-Af Amer) TNP 12/02/17 14:45 BUN/Creatinine Ratio 24.3 12/02/17 14:45 Glucose 87 mg/dL (70-105) 12/02/17 14:45 Calcium 10.0 mg/dL (8.6-10.3) 12/02/17 14:45 Total Bilirubin 0.4 mg/dL (0.3-1.0) 12/02/17 14:45 AST 18 U/L (13-39) 12/02/17 14:45 ALT 14 U/L (7-52) 12/02/17 14:45 Alkaline Phosphatase 46 U/L (34-104) 12/02/17 14:45 Total Protein 7.7 gm/dL (6.0-8.3) 12/02/17 14:45 Albumin 4.1 gm/dL (3.7-5.3) 12/02/17 14:45 Globulin 3.6 gm/dL 12/02/17 14:45 Albumin/Globulin Ratio 1.1 (1.0-1.8) 12/02/17 14:45 TSH 0.75 uIU/ml (0.34-5.60) 12/02/17 14:45 Urine Source RANDOM 12/02/17 14:30 Urine Color YELLOW 12/02/17 14:30 Urine Clarity CLEAR (CLEAR) 12/02/17 14:30 Urine pH 6.5 (4.6 - 8.0) 12/02/17 14:30 Ur Specific [place] 1.010 (1.005-1.030) 12/02/17 14:30 Urine Protein NEGATIVE mg/dL (NEGATIVE) 12/02/17 14:30 Urine Glucose (UA) NEGATIVE mg/dL (NEGATIVE) 12/02/17 14:30 Urine Ketones NEGATIVE mg/dL (NEGATIVE) 12/02/17 14:30 Urine Blood TRACE (NEGATIVE) 12/02/17 14:30 Urine Nitrate NEGATIVE (NEGATIVE) 12/02/17 14:30 Urine Bilirubin NEGATIVE (NEGATIVE) 12/02/17 14:30 Urine Urobilinogen 0.2 E.U./dL (0.2 - 1.0) 12/02/17 14:30 Ur Leukocyte Esterase NEGATIVE (NEGATIVE) 12/02/17 14:30 Urine RBC 0-2 /hpf (0-5) 12/02/17 14:30 Urine WBC NONE SEEN /hpf (0-5) 12/02/17 14:30 Ur Epithelial Cells NONE SEEN /lpf (FEW) 12/02/17 14:30 Urine Bacteria NONE SEEN /hpf (NONE SEEN) 12/02/17 14:30 - Physical Exam Vitals and I&O: Vital Signs Temp 98.5 F 12/08/17 05:41 Pulse 68 12/08/17 10:09 Resp 18 12/08/17 11:52 BP 116/72 12/08/17 10:09 Pulse Ox 98 12/08/17 05:41 Intake & Output 12/07/17 12/08/17 12/08/17 18:59 06:59 18:59 Intake Total 740 Balance 740 Intake: Oral 740 Other: # Voids 1 Active Medications: Current Medications Acetaminophen (Tylenol) 650 mg PO Q4HR PRN PRN Reason: Mild Pain / Temp above 100 Stop: 01/31/18 20:47 Al Hydrox/Mg Hydrox/Simethicone (Maalox) 30 ml PO Q4HR PRN PRN Reason: GI DISTRESS Stop: 01/31/18 20:47 Clonazepam (Klonopin) 0.5 mg PO BID TRACI PRN Reason: Protocol Stop: 02/02/18 16:59 Last Admin: 12/08/17 10:09 Dose: 0.5 mg Duloxetine HCl (Cymbalta) 30 mg PO DAILY TRACI PRN Reason: Protocol Stop: 02/03/18 08:59 Last Admin: 12/08/17 10:10 Dose: 30 mg Lisinopril (Zestril) 10 mg PO DAILY TRACI Stop: 02/01/18 08:59 Last Admin: 12/08/17 10:09 Dose: 10 mg Lorazepam (Ativan) 0.5 mg PO TID PRN; Protocol PRN Reason: Anxiety Stop: 01/31/18 20:28 Last Admin: 12/05/17 07:45 Dose: 0.5 mg Magnesium Hydroxide (Milk Of Magnesia) 30 ml PO HS PRN PRN Reason: Constipation Mirtazapine (Remeron) 30 mg PO HS TRACI PRN Reason: Protocol Stop: 02/02/18 20:59 Last Admin: 12/07/17 21:06 Dose: 30 mg Multivitamins/Vitamin C (Theragran) 1 tab PO DAILY TRACI Stop: 02/01/18 08:59 Last Admin: 12/08/17 10:09 Dose: 1 tab Olanzapine (Zyprexa) 2.5 mg PO HS TRACI PRN Reason: Protocol Stop: 02/02/18 20:59 Last Admin: 12/07/17 21:06 Dose: 2.5 mg Triamterene/HCTZ (Dyazide) 1 cap PO DAILY TRACI Stop: 02/01/18 08:59 Last Admin: 12/08/17 10:08 Dose: 1 cap Zolpidem Tartrate (Ambien) 5 mg PO HS PRN PRN Reason: Insomnia Stop: 01/31/18 20:47 Last Admin: 12/07/17 21:07 Dose: 5 mg General: demented HEENT: NC/AT, PERRLA Neck: Supple, No JVD, No LAD Lungs: CTAB Cardiovascular: RRR, Normal S1, Normal S2, with murmur Abdomen: soft, non-tender, positive bowel sound Extremities: excoriation Neurological: no change Internal Medicine Assmt/Plan - Assessment Assessment: htn dyslipidemia major depression anxiety - Plan Plan: fall precautions adjust bp meds accordingly continue current plan of care Nutritional Asmnt/Malnutr-PDOC - Dietary Evaluation Malnutrition Findings (Please click <Entered> for more info): Nutritional Asmnt/Malnutrition Start: 12/08/17 10: 34 Text: Status: Complete Freq: Document 12/08/17 10:34 HOWARD (Rec: 12/08/17 10:38 HOWARD BELTRAN USHA) Nutritional Asmnt/Malnutrition Patient General Information Diagnosis Major Depression RFV Pertinent Medical Hx/Surgical Hx HTN, dyslipidemia, Hysterectomy, knee surgery Subjective Information Pt asleep at time of visit Current Diet Order/ Nutrition Support Regular Pertinent Medications Maalox, theragran, MOM Pertinent Labs 12/02: Na 140, K 4.3, Cl 106, CO2 29.9, BUN 17, Cr 0.7, Ca 10.0, glucose 87 Nutritional Hx/Data Height 5 ft 3 in Height (Calculated Centimeters) 160.0 Current Weight (lbs) 128 lb Weight (Calculated Kilograms) 58.1 Weight (Calculated Grams) 60478.8 Body Mass Index (BMI) 22.6 Weight Status Approriate GI Symptoms GI Symptoms None Last BM 12/06 Cultural/Ethnic/Mu-Ism Belief None noted Usual diet at home Regular diet Skin Integrity/Comment: Eric score 19, intact Current %PO Good (75-100%) Estimated Nutritional Goals BEE in Kcals: Using Current wt Calories/Kcals/Kg 25-30kcals/kg Kcals Calculated 1450-1740kcals/day Protein: Using Current wt Protein g/kg/kg Protein Calculated 58kg/day Fluid: ml 1450-1740ml/day (1ml/kcal) Nutritional Problem 1. Problem Problem No nutrition diagnosis at this time Intervention/Recommendation Comments Recommend continuing Regular diet Expected Outcomes/Goals Expected Outcomes/Goals PO intake >75% of meals
--- NOTE | 2017-12-08 15:55 | Progress Notes ---
DATE: 12/08/2017 SUBJECTIVE: Staff was spoken to. The patient is irritable. Affect is constricted. The patient's depression seems to be resolving, but the patient has been in problem with anxiety and no side effect to the medications are noted. The patient has been able to tolerate the olanzapine as well as duloxetine. No side effects to the medications are noted. ASSESSMENT: The patient is still depressed and isolative. Appetite is noted to be improving to some extent. PLAN: To continue the patient with current medications and follow up with the supportive therapy. JOB# [id number]
[2017-12-09] MEDS: Multivitamin Tab PO SCH (09:33)
--- NOTE | 2017-12-09 15:23 | Internal Medicine Prog Note ---
Internal Medicine Subjective - Subjective Service Date: 12/09/17 Patient is:: awake, verbal, interactive, confused Per staff patient has:: no adverse event, no episodes of fall, poor appetite, confused, tolerating meds Internal Medicine Objective - Results Result Diagrams: 12/02/17 14:45 12/02/17 14:45 Recent Labs: Laboratory Last Values WBC 5.8 Th/cmm (4.8-10.8) 12/02/17 14:45 RBC 4.62 Mil/cmm (3.80-5.20) 12/02/17 14:45 Hgb 14.0 gm/dL (12-16) 12/02/17 14:45 Hct 41.8 % (41.0-60) 12/02/17 14:45 MCV 90.6 fl (81-100) 12/02/17 14:45 MCH 30.3 pg (27.0-31.0) 12/02/17 14:45 MCHC Differential 33.4 pg (28.0-36.0) 12/02/17 14:45 RDW 13.4 % (11.5-20.0) 12/02/17 14:45 Plt Count 224 Th/cmm (150-400) 12/02/17 14:45 MPV 6.4 fl 12/02/17 14:45 Neutrophils % 66.8 % (40.0-80.0) 12/02/17 14:45 Lymphocytes % 24.2 % (20.0-50.0) 12/02/17 14:45 Monocytes % 7.9 % (2.0-10.0) 12/02/17 14:45 Eosinophils % 0.8 % (0.0-5.0) 12/02/17 14:45 Basophils % 0.3 % (0.0-2.0) 12/02/17 14:45 Sodium 140 mEq/L (136-145) 12/02/17 14:45 Potassium 4.3 mEq/L (3.5-5.1) 12/02/17 14:45 Chloride 106 mEq/L (98-107) 12/02/17 14:45 Carbon Dioxide 29.9 mEq/L (21.0-31.0) 12/02/17 14:45 Anion Gap 8.4 (7.0-16.0) 12/02/17 14:45 BUN 17 mg/dL (7-25) 12/02/17 14:45 Creatinine 0.7 mg/dL (0.6-1.2) 12/02/17 14:45 Est GFR ( Amer) TNP 12/02/17 14:45 Est GFR (Non-Af Amer) TNP 12/02/17 14:45 BUN/Creatinine Ratio 24.3 12/02/17 14:45 Glucose 87 mg/dL (70-105) 12/02/17 14:45 Calcium 10.0 mg/dL (8.6-10.3) 12/02/17 14:45 Total Bilirubin 0.4 mg/dL (0.3-1.0) 12/02/17 14:45 AST 18 U/L (13-39) 12/02/17 14:45 ALT 14 U/L (7-52) 12/02/17 14:45 Alkaline Phosphatase 46 U/L (34-104) 12/02/17 14:45 Total Protein 7.7 gm/dL (6.0-8.3) 12/02/17 14:45 Albumin 4.1 gm/dL (3.7-5.3) 12/02/17 14:45 Globulin 3.6 gm/dL 12/02/17 14:45 Albumin/Globulin Ratio 1.1 (1.0-1.8) 12/02/17 14:45 TSH 0.75 uIU/ml (0.34-5.60) 12/02/17 14:45 Urine Source RANDOM 12/02/17 14:30 Urine Color YELLOW 12/02/17 14:30 Urine Clarity CLEAR (CLEAR) 12/02/17 14:30 Urine pH 6.5 (4.6 - 8.0) 12/02/17 14:30 Ur Specific [place] 1.010 (1.005-1.030) 12/02/17 14:30 Urine Protein NEGATIVE mg/dL (NEGATIVE) 12/02/17 14:30 Urine Glucose (UA) NEGATIVE mg/dL (NEGATIVE) 12/02/17 14:30 Urine Ketones NEGATIVE mg/dL (NEGATIVE) 12/02/17 14:30 Urine Blood TRACE (NEGATIVE) 12/02/17 14:30 Urine Nitrate NEGATIVE (NEGATIVE) 12/02/17 14:30 Urine Bilirubin NEGATIVE (NEGATIVE) 12/02/17 14:30 Urine Urobilinogen 0.2 E.U./dL (0.2 - 1.0) 12/02/17 14:30 Ur Leukocyte Esterase NEGATIVE (NEGATIVE) 12/02/17 14:30 Urine RBC 0-2 /hpf (0-5) 12/02/17 14:30 Urine WBC NONE SEEN /hpf (0-5) 12/02/17 14:30 Ur Epithelial Cells NONE SEEN /lpf (FEW) 12/02/17 14:30 Urine Bacteria NONE SEEN /hpf (NONE SEEN) 12/02/17 14:30 - Physical Exam Vitals and I&O: Vital Signs Temp 97.8 F 12/09/17 06:13 Pulse 59 12/09/17 10:34 Resp 20 12/09/17 06:13 BP 107/68 12/09/17 10:34 Pulse Ox 99 12/09/17 06:13 Intake & Output 12/08/17 12/09/17 12/09/17 18:59 06:59 18:59 Intake Total 240 Balance 240 Weight (lbs) 128 lb Intake: Oral 240 Other: # Voids 3 # Bowel Movements 0 Weight Source Bedscale Active Medications: Current Medications Acetaminophen (Tylenol) 650 mg PO Q4HR PRN PRN Reason: Mild Pain / Temp above 100 Stop: 01/31/18 20:47 Al Hydrox/Mg Hydrox/Simethicone (Maalox) 30 ml PO Q4HR PRN PRN Reason: GI DISTRESS Stop: 01/31/18 20:47 Clonazepam (Klonopin) 0.5 mg PO BID TRACI PRN Reason: Protocol Stop: 02/02/18 16:59 Last Admin: 12/09/17 09:33 Dose: 0.5 mg Duloxetine HCl (Cymbalta) 30 mg PO DAILY TRACI PRN Reason: Protocol Stop: 02/03/18 08:59 Last Admin: 12/09/17 09:33 Dose: 30 mg Lisinopril (Zestril) 10 mg PO DAILY TRACI Stop: 02/01/18 08:59 Last Admin: 12/09/17 10:34 Dose: Not Given Lorazepam (Ativan) 0.5 mg PO TID PRN; Protocol PRN Reason: Anxiety Stop: 01/31/18 20:28 Last Admin: 12/05/17 07:45 Dose: 0.5 mg Magnesium Hydroxide (Milk Of Magnesia) 30 ml PO HS PRN PRN Reason: Constipation Mirtazapine (Remeron) 30 mg PO HS TRACI PRN Reason: Protocol Stop: 02/02/18 20:59 Last Admin: 12/08/17 21:17 Dose: 30 mg Multivitamins/Vitamin C (Theragran) 1 tab PO DAILY TRACI Stop: 02/01/18 08:59 Last Admin: 12/09/17 09:33 Dose: 1 tab Olanzapine (Zyprexa) 2.5 mg PO HS TRACI PRN Reason: Protocol Stop: 02/02/18 20:59 Last Admin: 12/08/17 21:17 Dose: 2.5 mg Triamterene/HCTZ (Dyazide) 1 cap PO DAILY TRACI Stop: 02/01/18 08:59 Last Admin: 12/08/17 10:08 Dose: 1 cap Zolpidem Tartrate (Ambien) 5 mg PO HS PRN PRN Reason: Insomnia Stop: 01/31/18 20:47 Last Admin: 12/08/17 21:19 Dose: 5 mg General: demented HEENT: NC/AT, PERRLA Neck: Supple, No JVD, No LAD Lungs: CTAB Cardiovascular: RRR, Normal S1, Normal S2, with murmur Abdomen: soft, non-tender, positive bowel sound Extremities: excoriation Neurological: no change Internal Medicine Assmt/Plan - Assessment Assessment: htn dyslipidemia major depression anxiety - Plan Plan: fall precautions adjust bp meds accordingly continue current plan of care Nutritional Asmnt/Malnutr-PDOC - Dietary Evaluation Malnutrition Findings (Please click <Entered> for more info): Nutritional Asmnt/Malnutrition Start: 12/08/17 10: 34 Text: Status: Complete Freq: Document 12/08/17 10:34 HOWARD (Rec: 12/08/17 10:38 HOWARD BELTRAN FN) Nutritional Asmnt/Malnutrition Patient General Information Diagnosis Major Depression RFV Pertinent Medical Hx/Surgical Hx HTN, dyslipidemia, Hysterectomy, knee surgery Subjective Information Pt asleep at time of visit Current Diet Order/ Nutrition Support Regular Pertinent Medications Maalox, theragran, MOM Pertinent Labs 12/02: Na 140, K 4.3, Cl 106, CO2 29.9, BUN 17, Cr 0.7, Ca 10.0, glucose 87 Nutritional Hx/Data Height 5 ft 3 in Height (Calculated Centimeters) 160.0 Current Weight (lbs) 128 lb Weight (Calculated Kilograms) 58.1 Weight (Calculated Grams) 51916.8 Body Mass Index (BMI) 22.6 Weight Status Approriate GI Symptoms GI Symptoms None Last BM 12/06 Cultural/Ethnic/Mu-Ism Belief None noted Usual diet at home Regular diet Skin Integrity/Comment: Eric score 19, intact Current %PO Good (75-100%) Estimated Nutritional Goals BEE in Kcals: Using Current wt Calories/Kcals/Kg 25-30kcals/kg Kcals Calculated 1450-1740kcals/day Protein: Using Current wt Protein g/kg/kg Protein Calculated 58kg/day Fluid: ml 1450-1740ml/day (1ml/kcal) Nutritional Problem 1. Problem Problem No nutrition diagnosis at this time Intervention/Recommendation Comments Recommend continuing Regular diet Expected Outcomes/Goals Expected Outcomes/Goals PO intake >75% of meals
--- NOTE | 2017-12-09 17:15 | Progress Notes ---
DATE: 12/09/2017 PSYCHIATRIC PROGRESS NOTE SUBJECTIVE: Staff was spoken to. The patient is interviewed. Mood is noted to be anxious. The patient's depression seems to be resolving. The patient is not suicidal. The patient's family is pleased with the patient's progress so far. No side effects to the medications are noted. The patient is worrying how she is going to be doing when she gets out of here. ASSESSMENT: The patient is still depressed. PLAN: To continue the patient with the supportive therapy, encouraged the patient to verbalize the concerns rather than to act out. JOB# [id number]
[2017-12-10] MEDS: Multivitamin Tab PO SCH (09:07)
--- NOTE | 2017-12-10 13:12 | Internal Medicine Prog Note ---
Internal Medicine Subjective - Subjective Service Date: 12/10/17 Patient is:: awake, verbal, interactive, confused Per staff patient has:: no adverse event, no episodes of fall, poor appetite, confused, tolerating meds Internal Medicine Objective - Results Result Diagrams: 12/02/17 14:45 12/02/17 14:45 Recent Labs: Laboratory Last Values WBC 5.8 Th/cmm (4.8-10.8) 12/02/17 14:45 RBC 4.62 Mil/cmm (3.80-5.20) 12/02/17 14:45 Hgb 14.0 gm/dL (12-16) 12/02/17 14:45 Hct 41.8 % (41.0-60) 12/02/17 14:45 MCV 90.6 fl (81-100) 12/02/17 14:45 MCH 30.3 pg (27.0-31.0) 12/02/17 14:45 MCHC Differential 33.4 pg (28.0-36.0) 12/02/17 14:45 RDW 13.4 % (11.5-20.0) 12/02/17 14:45 Plt Count 224 Th/cmm (150-400) 12/02/17 14:45 MPV 6.4 fl 12/02/17 14:45 Neutrophils % 66.8 % (40.0-80.0) 12/02/17 14:45 Lymphocytes % 24.2 % (20.0-50.0) 12/02/17 14:45 Monocytes % 7.9 % (2.0-10.0) 12/02/17 14:45 Eosinophils % 0.8 % (0.0-5.0) 12/02/17 14:45 Basophils % 0.3 % (0.0-2.0) 12/02/17 14:45 Sodium 140 mEq/L (136-145) 12/02/17 14:45 Potassium 4.3 mEq/L (3.5-5.1) 12/02/17 14:45 Chloride 106 mEq/L (98-107) 12/02/17 14:45 Carbon Dioxide 29.9 mEq/L (21.0-31.0) 12/02/17 14:45 Anion Gap 8.4 (7.0-16.0) 12/02/17 14:45 BUN 17 mg/dL (7-25) 12/02/17 14:45 Creatinine 0.7 mg/dL (0.6-1.2) 12/02/17 14:45 Est GFR ( Amer) TNP 12/02/17 14:45 Est GFR (Non-Af Amer) TNP 12/02/17 14:45 BUN/Creatinine Ratio 24.3 12/02/17 14:45 Glucose 87 mg/dL (70-105) 12/02/17 14:45 Calcium 10.0 mg/dL (8.6-10.3) 12/02/17 14:45 Total Bilirubin 0.4 mg/dL (0.3-1.0) 12/02/17 14:45 AST 18 U/L (13-39) 12/02/17 14:45 ALT 14 U/L (7-52) 12/02/17 14:45 Alkaline Phosphatase 46 U/L (34-104) 12/02/17 14:45 Total Protein 7.7 gm/dL (6.0-8.3) 12/02/17 14:45 Albumin 4.1 gm/dL (3.7-5.3) 12/02/17 14:45 Globulin 3.6 gm/dL 12/02/17 14:45 Albumin/Globulin Ratio 1.1 (1.0-1.8) 12/02/17 14:45 TSH 0.75 uIU/ml (0.34-5.60) 12/02/17 14:45 Urine Source RANDOM 12/02/17 14:30 Urine Color YELLOW 12/02/17 14:30 Urine Clarity CLEAR (CLEAR) 12/02/17 14:30 Urine pH 6.5 (4.6 - 8.0) 12/02/17 14:30 Ur Specific [place] 1.010 (1.005-1.030) 12/02/17 14:30 Urine Protein NEGATIVE mg/dL (NEGATIVE) 12/02/17 14:30 Urine Glucose (UA) NEGATIVE mg/dL (NEGATIVE) 12/02/17 14:30 Urine Ketones NEGATIVE mg/dL (NEGATIVE) 12/02/17 14:30 Urine Blood TRACE (NEGATIVE) 12/02/17 14:30 Urine Nitrate NEGATIVE (NEGATIVE) 12/02/17 14:30 Urine Bilirubin NEGATIVE (NEGATIVE) 12/02/17 14:30 Urine Urobilinogen 0.2 E.U./dL (0.2 - 1.0) 12/02/17 14:30 Ur Leukocyte Esterase NEGATIVE (NEGATIVE) 12/02/17 14:30 Urine RBC 0-2 /hpf (0-5) 12/02/17 14:30 Urine WBC NONE SEEN /hpf (0-5) 12/02/17 14:30 Ur Epithelial Cells NONE SEEN /lpf (FEW) 12/02/17 14:30 Urine Bacteria NONE SEEN /hpf (NONE SEEN) 12/02/17 14:30 - Physical Exam Vitals and I&O: Vital Signs Temp 97.9 F 12/10/17 06:44 Pulse 69 12/10/17 09:07 Resp 20 12/10/17 06:44 BP 101/60 12/10/17 10:09 Pulse Ox 94 12/09/17 21:11 Intake & Output 12/09/17 12/10/17 12/10/17 18:59 06:59 18:59 Intake Total 1000 480 Balance 1000 480 Intake: Oral 1000 480 Other: # Voids 3 1 # Bowel Movements 1 Active Medications: Current Medications Acetaminophen (Tylenol) 650 mg PO Q4HR PRN PRN Reason: Mild Pain / Temp above 100 Stop: 01/31/18 20:47 Al Hydrox/Mg Hydrox/Simethicone (Maalox) 30 ml PO Q4HR PRN PRN Reason: GI DISTRESS Stop: 01/31/18 20:47 Clonazepam (Klonopin) 0.5 mg PO BID TRACI PRN Reason: Protocol Stop: 02/02/18 16:59 Last Admin: 12/10/17 09:07 Dose: 0.5 mg Duloxetine HCl (Cymbalta) 30 mg PO DAILY TRACI PRN Reason: Protocol Stop: 02/03/18 08:59 Last Admin: 12/10/17 09:08 Dose: 30 mg Lisinopril (Zestril) 10 mg PO DAILY TRACI Stop: 02/01/18 08:59 Last Admin: 12/10/17 09:07 Dose: 10 mg Magnesium Hydroxide (Milk Of Magnesia) 30 ml PO HS PRN PRN Reason: Constipation Mirtazapine (Remeron) 30 mg PO HS TRACI PRN Reason: Protocol Stop: 02/02/18 20:59 Last Admin: 12/09/17 21:29 Dose: 30 mg Multivitamins/Vitamin C (Theragran) 1 tab PO DAILY TRACI Stop: 02/01/18 08:59 Last Admin: 12/10/17 09:07 Dose: 1 tab Olanzapine (Zyprexa) 2.5 mg PO HS TRACI PRN Reason: Protocol Stop: 02/02/18 20:59 Last Admin: 12/09/17 21:29 Dose: 2.5 mg Triamterene/HCTZ (Dyazide) 1 cap PO DAILY TRACI Stop: 02/01/18 08:59 Last Admin: 12/10/17 10:09 Dose: Not Given Zolpidem Tartrate (Ambien) 5 mg PO HS PRN PRN Reason: Insomnia Stop: 01/31/18 20:47 Last Admin: 12/09/17 21:29 Dose: 5 mg General: demented HEENT: NC/AT, PERRLA Neck: Supple, No JVD, No LAD Lungs: CTAB Cardiovascular: RRR, Normal S1, Normal S2, with murmur Abdomen: soft, non-tender, positive bowel sound Extremities: excoriation Neurological: no change Internal Medicine Assmt/Plan - Assessment Assessment: htn dyslipidemia major depression anxiety - Plan Plan: fall precautions adjust bp meds accordingly continue current plan of care Nutritional Asmnt/Malnutr-PDOC - Dietary Evaluation Malnutrition Findings (Please click <Entered> for more info): Nutritional Asmnt/Malnutrition Start: 12/08/17 10: 34 Text: Status: Complete Freq: Document 12/08/17 10:34 HOWARD (Rec: 12/08/17 10:38 [facility]) Nutritional Asmnt/Malnutrition Patient General Information Diagnosis Major Depression RFV Pertinent Medical Hx/Surgical Hx HTN, dyslipidemia, Hysterectomy, knee surgery Subjective Information Pt asleep at time of visit Current Diet Order/ Nutrition Support Regular Pertinent Medications Maalox, theragran, MOM Pertinent Labs 12/02: Na 140, K 4.3, Cl 106, CO2 29.9, BUN 17, Cr 0.7, Ca 10.0, glucose 87 Nutritional Hx/Data Height 5 ft 3 in Height (Calculated Centimeters) 160.0 Current Weight (lbs) 128 lb Weight (Calculated Kilograms) 58.1 Weight (Calculated Grams) 06039.8 Body Mass Index (BMI) 22.6 Weight Status Approriate GI Symptoms GI Symptoms None Last BM 12/06 Cultural/Ethnic/Evangelical Belief None noted Usual diet at home Regular diet Skin Integrity/Comment: Eric score 19, intact Current %PO Good (75-100%) Estimated Nutritional Goals BEE in Kcals: Using Current wt Calories/Kcals/Kg 25-30kcals/kg Kcals Calculated 1450-1740kcals/day Protein: Using Current wt Protein g/kg/kg Protein Calculated 58kg/day Fluid: ml 1450-1740ml/day (1ml/kcal) Nutritional Problem 1. Problem Problem No nutrition diagnosis at this time Intervention/Recommendation Comments Recommend continuing Regular diet Expected Outcomes/Goals Expected Outcomes/Goals PO intake >75% of meals
--- NOTE | 2017-12-11 01:42 | Progress Notes ---
DATE: 12/10/2017 PSYCHIATRIC PROGRESS NOTE SUBJECTIVE: Staff was spoken to. The patient is interviewed. Mood is very anxious. Affect is appropriate. Not suicidal or homicidal. Insight and judgment are improving. Impulse control seems to be fair. No side effects to the medications are noted. The patient has been able to verbalize the concerns rather than to act out. ASSESSMENT: The patient is stabilizing. PLAN: To discharge the patient today for followup on outpatient basis. [facility]# [id number]
--- NOTE | 2017-12-11 20:43 | Discharge Summary ---
DATE OF DISCHARGE: 12/10/2017 IDENTIFYING DATA: The patient is a 72-year-old woman, , living with her family. JUSTIFICATION OF HOSPITALIZATION: The patient is admitted on a voluntary basis in view of her acute depression and anxiety. CHIEF COMPLAINT: "I need some help. I have been here for 3 months. I cannot go on like this." DIAGNOSES AT THE TIME OF ADMISSION: AXIS I: Major depressive disorder, recurrent, severe with anxiety symptoms, rule out psychosis. AXIS II: None. AXIS III: Hypertension, hypercholesterolemia. HISTORY OF PRESENT ILLNESS: Please refer to 12/03/2017 dictation done by me. Physical examination was done by Dr. Montgomery and is noted to be within normal limits. Labs have been significant for hypertension, hypercholesterolemia. HOSPITAL COURSE AND RESPONSE TO TREATMENT: The patient has been observed on the inpatient unit, provided with supportive psychotherapy. The patient has been encouraged to participate in the groups and verbalize the concerns. The patient has been closely monitored on the unit, provided with supportive therapy. The patient has been continued on the routine medications as Tylenol, Mylanta and milk of magnesia. In view of her anxiety, the patient has been started on the Klonopin, which was given 0.5 mg twice a day. The patient has been started on the duloxetine 30 mg in the morning and mirtazapine 15 mg at bedtime. The patient also has been placed on the olanzapine 2.5 mg. With these medications, the patient has been observed and was noted to be doing fairly well and the patient was finally discharged on 12/10/2017 with the recommendations that she is going to be seeking treatment on an outpatient basis. MENTAL STATUS EXAMINATION: At the time of the discharge, the patient noted to be anxious. Affect is appropriate. Not suicidal or homicidal. Coping skills are noted to be fair. Sleep and appetite also noted to be fair. No side effects to the medications are noted at the time of discharge. CONDITION: At the time of discharge noted to be stable. DIAGNOSES AT THE TIME OF DISCHARGE: AXIS I: Major depressive disorder, recurrent with anxiety symptoms. AXIS II: None. AXIS III: Hypertension, hypercholesterolemia. AFTERCARE PLAN: The patient is discharged to be followed up on an outpatient basis. PROGNOSIS: At the time of the discharge noted to be fair with the treatment. JOB# [id number]
== END 2017-12-10 13:45 | disposition home or self-care (01) | DRG 885 ==
LOC: ER 13:43 → GERO2 16:50
PROVIDERS: ADMIT Psychiatry & Neurology Psychiatry; ATTEND Psychiatry & Neurology Psychiatry
DX: F33.3 Major depressive disorder, recurrent, severe with psychotic symptoms (principal); R45.851 Suicidal ideations; E78.00 Pure hypercholesterolemia, unspecified; E78.5 Hyperlipidemia, unspecified; F41.9 Anxiety disorder, unspecified; I10 Essential (primary) hypertension; Z79.899 Other long term (current) drug therapy; Z90.710 Acquired absence of both cervix and uterus
CPT/HCPCS: 36415-UA; 71045-TC; 80053-TC; 81001-TC; 84443-TC; 85025-TC; 90899; 93005; G0410; Z7610

== ENCOUNTER 2018-04-08 13:19 | Inpatient (IN) | payer MEDICARE ==
[2018-04-08 13:45] LABS: % BASOPHILS 0.6 % (0.0-2.0); % EOSINOPHILS 0.8 % (0.0-5.0); % LYMPHOCYTES 21.9 % (20.0-50.0); % MONOCYTES 5.9 % (2.0-10.0); % NEUTROPHILS 70.8 % (40.0-80.0); EOSINOPHILE ABSOLUTE 0.1 Th/cmm (0.1-0.4); HEMATOCRIT 43.5 % (41.0-60); HEMOGLOBIN 14.4 gm/dL (12-16); LYMPHOCYTE ABSOLUTE 1.7 Th/cmm (1.5-3.0); MEAN CELL VOLUME 90.7 fl (81-100); MEAN CORPUSCULAR HEMOGLOBIN 30.1 pg (27.0-31.0); MEAN CORPUSCULAR HGB CONC 33.2 pg (28.0-36.0); MONOCYTE ABSOLUTE 0.5 Th/cmm (0.3-1.0); NEUTROPHILE ABSOLUTE 5.4 Th/cmm (1.8-8.0); PLATELET COUNT 239 Th/cmm (150-400); RED BLOOD COUNT 4.79 Mil/cmm (3.80-5.20); RED CELL DISTRIBUTION WIDTH 13.1 % (11.5-20.0); WHITE BLOOD COUNT 7.7 Th/cmm (4.8-10.8)
[2018-04-08 13:55] LABS: INR 0.99 (0.5-1.4); PROTHROMBIN TIME (TEST) 10.3 SECONDS (9.5-11.5)
--- NOTE | 2018-04-08 13:57 | ED Physician Chart ---
ED Chief Complaint/HPI - Patient Information Date Seen:: 04/08/18 Time Seen:: 13:42 Chief Complaint:: ANXIETY REACTION History of Present Illness:: THIS IS A 72 YO PSYCH PATIENT WHO IS HERE AND CONCERNED ABOUT SOME INCREASE ANXIETY AFTER HER PSYCH MEDS WERE CHANGED BY A NEW PSYCH DOCTOR ABOUT A WEEK AGO. SHE DENIES HAVING ANY OTHER MEDICAL PROBLEM. THE PATIENT THINKS THAT HER FAMILY IS TRYING TO POISON HER. Allergies:: Allergies Allergy/AdvReac Type Severity Reaction Status Date / Time No Known Allergies Allergy Verified 12/02/17 13:58 Vitals:: Vital Signs - 8 hr 04/08/18 13:44 Temp 99.0 F HR 86 RR 18 BP 122/74 O2 Sat % 96 Historian:: Patient, Family Member (DAUGHTER) ED Review of Systems - Review of Systems General/Constitutional: No fever, No chills, No weight loss, No weakness, No diaphoresis, No edema, No loss of appetite Skin: No skin lesions, No rash, No bruising Head: No headache, No light-headedness Eyes: No loss of vision, No pain, No diplopia ENT: No earache, No nasal drainage, No sore throat, No tinnitus Neck: No neck pain, No swelling, No thyromegaly, No stiffness, No mass noted Cardio Vascular: No chest pain, No palpitations, No PND, No orthopnea, No edema Pulmonary: No SOB, No cough, No sputum, No wheezing GI: No nausea, No vomiting, No diarrhea, No pain, No melena, No hematochezia, No constipation, No hematemesis G/U: No dysuria, No frequency, No hematuria Musculoskeletal: No bone or joint pain, No back pain, No muscle pain Endocrine: No polyuria, No polydipsia Psychiatric: No prior psych history, No depression, Anxiety, No suicidal ideation Hematopoietic: No bruising, No lymphadenopathy Allergic/Immuno: No urticaria, No angioedema Neurological: No syncope, No focal symptoms, No weakness, No paresthesia, No headache, No seizure, No dizziness, No confusion, No vertigo ED Past Medical History - Past Medical History Obtainable: Yes Past Medical History: HTN, Dyslipidemia, Other (ANXIETY) Family History: None Social History: Non Smoker, No Alcohol, No Drug Use, Surgical History: Hysterectomy, other (KNEE SURGERY) Psychiatricy History: Other (ANXIETY) Medication: Reviewed Family Medical History - Family Member Mother History Unknown: Yes Ethnicity: Unknown Living Status: Unknown Hx Family Cancer: (unknown) Hx Family Coronary Artery Disease: (unknown) Hx Family Congestive Heart Failure: (unknown) Hx Family Hypertension: (unknown) Hx Family Stroke: (unknown) Hx Family Diabetes: (unknown) Hx Family Seizures: (unknown) Hx Family Dementia: (unknown) Hx Family AIDS: (unknown) Hx Family COPD: (unknown) Hx Family Hepatitis: (unknown) Hx Family Psychiatric Problems: (unknown) Hx Family Tuberculosis: (unknown) ED Physical Exam - Physical Examination General/Constitutional: Awake, Well-developed, well-nourished, Alert, No distress, GCS 15, Non-toxic appearing, Ambulatory Head: Atraumatic Eyes: Lids, conjuctiva normal, PERRL, EOMI Skin: Nl inspection, No rash, No skin lesions, No ecchymosis, Well hydrated, No lymphadenopathy ENMT: External ears, nose nl, Nasal exam nl, Lips, teeth, gums nl Neck: Nontender, Full ROM w/o pain, No JVD, No nuchal rigidity, No bruit, No mass, No stridor Respiratory: Nl effort/Exclusion, Clear to Auscultation, No Wheeze/Rhonchi/Rales Cardio Vascular: RRR, No murmur, gallop, rubs, NL S1 S2 GI: No tenderness/rebounding/guarding, No organomegaly, No hernia, Normal BS's, Nondistended, No mass/bruits, No McBurney tenderness : No CVA tenderness Extremities: No tenderness or effusion, Full ROM, normal strength in all extremities, No edema, Normal digits & nails Neuro/Psych: Alert/oriented, DTR's symmetric, Normal sensory exam, Normal motor strength, Judgement/insight normal, Mood normal, Normal gait, No focal deficits Other Neuro/Psych comments:: ANXIETY Misc: Normal back, No paraspinal tenderness ED Labs/Radiology/EKG Results - Lab Results Results: Laboratory Tests 04/08/18 13:36 WBC 7.7 RBC 4.79 Hgb 14.4 Hct 43.5 MCV 90.7 MCH 30.1 MCHC Differential 33.2 RDW 13.1 Plt Count 239 MPV 7.0 Neutrophils % 70.8 Lymphocytes % 21.9 Monocytes % 5.9 Eosinophils % 0.8 Basophils % 0.6 ED Assessment - Assessment General Assessment: PARANOID SCHIZO ANXIETY REACTION ED Septic Shock - . Is Septic Shock (SBP<90, OR Lactate>4 mmol\L) present?: No - <6hrs of presentation: Vital Signs: Vital Signs - 8 hr 04/08/18 13:44 Temp 99.0 F HR 86 RR 18 BP 122/74 O2 Sat % 96 ED Reassessment (Disposition) - Reassessment Reassessment Condition:: Unchanged - Diagnosis Diagnosis:: SCHIZOPHENIA PARANOID ANXIETY REACTION - Patient Disposition Discharge/Transfer:: Acute Care w/in this hosp Admitting Medical Physician:: Vishal Montgomery Admitting Psych Physician:: Reynaldo Caruso Condition at Disposition:: Unchanged
[2018-04-08 14:02] LABS: ALB/GLOB RATIO 1.3 (1.0-1.8); ALBUMIN 4.4 gm/dL (3.7-5.3); ALKALINE PHOSPHATASE 49 U/L (34-104); ANION GAP 11.6 (7.0-16.0); BILIRUBIN,TOTAL 0.6 mg/dL (0.3-1.0); BUN - UREA NITROGEN 17 mg/dL (7-25); CALCIUM SERUM 10.3 mg/dL (8.6-10.3); CARBON DIOXIDE 26.5 mEq/L (21.0-31.0); CHLORIDE 104 mEq/L (98-107); CREATININE - SERUM 0.9 mg/dL (0.6-1.2); GLUCOSE 148 mg/dL (70-105); POTASSIUM SERUM 4.1 mEq/L (3.5-5.1); SGOT 23 U/L (13-39); SGPT/ALT 21 U/L (7-52); SODIUM SERUM 138 mEq/L (136-145); TOTAL PROTEIN,SERUM 7.8 gm/dL (6.0-8.3)
[2018-04-08 14:32] LABS: URINE MICROSCOPIC INDICATED? YES; URINE SOURCE CLEAN C
[2018-04-08 14:35] LABS: URINE BILIRUBIN NEGATIVE (NEGATIVE); URINE BLOOD SMALL (NEGATIVE); URINE GLUCOSE (UA) NEGATIVE (NEGATIVE); URINE KETONE NEGATIVE (NEGATIVE); URINE LEUKOCYTE ESTERASE SMALL (NEGATIVE); URINE NITRATE NEGATIVE (NEGATIVE); URINE PROTEIN NEGATIVE (NEGATIVE); URINE UROBILINOGEN 0.2 E.U./dL (0.2 - 1.0)
--- NOTE | 2018-04-08 14:40 | Diagnostic Imaging Report ---
CHEST X-RAY: AP view INDICATION: pain COMPARISON: 12/02/2017 FINDINGS: Chronic lung changes are noted. There is no focal consolidation or pleural effusions . Patient is mildly rotated. Heart size at the upper limits of normal. Tortuous aorta is noted. Degenerative changes of the spine are noted. IMPRESSION: Chronic lung changes with no focal consolidation identified. Tortuous aorta as seen on prior exam.
[2018-04-08 15:04] LABS: URINE CLARITY N (CLEAR); URINE COLOR YELLOW
[2018-04-08 15:05] LABS: URINE BACTERIA NONE SEEN /hpf (NONE SEEN); URINE EPITHELIAL CELLS FEW /lpf (FEW); URINE RBC 0-2 /hpf (0-5); URINE WBC 0-2 /hpf (0-5)
[2018-04-08 20:45] LABS: A1C % 5.5 % (4.0-6.0)
[2018-04-08 21:16] VITALS: BP 141/86
[2018-04-09] MEDS ORDERED: BREXPIPRAZOLE 0.5 MG PO SCH (09:00)
[2018-04-09] MEDS: Multivitamin Tab PO SCH (09:32)
--- NOTE | 2018-04-09 19:03 | History and Physical ---
History of Present Illness - HPI Chief Complaint: Psychosis HPI: This is a 72-year old female who is admitted to the geropsych unit admitted from home. Apparently patient has not been taking her medications due to her thoughts of her family poisoning her. Vital Signs: Last Vital Signs Temp 98.4 F 04/09/18 14:00 Pulse 71 04/09/18 17:06 Resp 20 04/09/18 14:00 BP 111/71 04/09/18 17:06 Pulse Ox 87 04/09/18 14:00 Past Medical History Other History: HTN, Dyslipidemia,anxiety - Past Surgical History Past Surgical History: Other (hysterectomy) Family Medical History - Family Member Mother History Unknown: Yes Ethnicity: Unknown Living Status: Unknown Hx Family Cancer: (Unknown) Hx Family Coronary Artery Disease: (Unknown) Hx Family Congestive Heart Failure: (Unknown) Hx Family Hypertension: (Unknown) Hx Family Stroke: (Unknown) Hx Family Diabetes: (Unknown) Hx Family Seizures: (Unknown) Hx Family Dementia: (Unknown) Hx Family AIDS: (Unknown) Hx Family COPD: (Unknown) Hx Family Hepatitis: (Unknown) Hx Family Psychiatric Problems: (Unknown) Hx Family Tuberculosis: (Unknown) Social History Smoke: No Alcohol: None Drugs: None Lives: With Family - Medications Home Medications: Home Medication Medication Instructions Recorded Type Atorvastatin Calcium [Lipitor] 40 mg PO DAILY 04/08/18 History Brexpiprazole [Rexulti] 0.5 mg PO DAILY 04/08/18 History Lisinopril [Zestril*] 10 mg PO QPM 04/08/18 History Mirtazapine [Remeron] 45 mg PO HS 04/08/18 History Triamterene/HCTZ [Dyazide] 1 cap PO DAILY 04/08/18 History - Allergies Allergies/Adverse Reactions: Allergies Allergy/AdvReac Type Severity Reaction Status Date / Time No Known Allergies Allergy Verified 12/02/17 13:58 Review of Systems - Review of Systems Constitutional: Report: No Significant Eyes: Report: No Significant ENT: Report: No Significant Respiratory: Report: No Significant Cardiovascular: Report: No Significant Neurological: Report: No Significant Physical Exam - Physical Exam HEENT: Report: Ears Nose Throat within normal limits Neck: Report: Within normal limits Cardiovascular Systems: Report: +s1/s2 noted, Regular, Rate and Rhythm Respiratory: Report: Breath Sounds are within normal limits Back: Report: Inspection of back is within normal limits. Extremities: Report: Non-tender to palpation. Skin: Report: Color of skin is within normal limits, Warm, Dry Neuro/Psych: Report: Mood affect is within normal limits - Lab Results All Lab Results last 24 hours: Laboratory Results - last 24 hr 04/08/18 13:36 Hemoglobin A1c % 5.5 - Assessment Assessment: Current Active Problems Problem Status Onset ANXIETY Acute HTN DYSLIPIDEMIA PSYCHOSIS - Plan Plan: CONTINUE HOME MEDICATIONS FALL PRECAUTIONS CONTINUE CURRENT PLAN OF CARE
--- NOTE | 2018-04-10 00:58 | Psychiatric Evaluation ---
DATE OF SERVICE: 04/08/2018 IDENTIFYING DATA: The patient is a 72-year-old woman, living with her family. Information obtained by directly interviewing the patient as well as reviewing the admission papers and they are reliable. JUSTIFICATION OF HOSPITALIZATION: The patient is admitted here on a voluntary basis in view of her acute anxiety. CHIEF COMPLAINT: "I am not able to relax and up and down all the time. I feel frustrated." HISTORY OF PRESENT ILLNESS: This is one of multiple psychiatric hospitalizations for this patient who has been diagnosed to have major depressive disorder and was here in the hospital in November of this year following the discharge, the patient was referred to be followed up by ____ on outpatient basis. The patient has been currently getting the Remeron; however, the patient is reporting that she has been having difficult time to relax and has been pacing most of the time. The patient is also reporting that she has tried on several different medications at the time of the hospitalization, the patient has been on the Remeron 45 mg and is stating that she tried the Risperdal in the past and also has been on the Zoloft, Paxil. The patient has not been getting any better and the family is requesting to be hospitalized for stabilization. PAST PSYCHIATRIC HISTORY: Please refer to the above. MEDICAL HISTORY: Physical examination is requested and done by Dr. Montgomery. SUBSTANCE ABUSE HISTORY: None. PHYSICAL OR SEXUAL ABUSE HISTORY: None. LEGAL PROBLEMS: None. SOCIAL HISTORY: The patient is , living with her family, and son are there by the bedside, they are very supportive. The patient is motivated. LIABILITIES: Multiple hospitalizations. MENTAL STATUS EXAMINATION: The patient is a 72-year-old, looking her stated age, cooperative. Mood is noted to be depressed. Affect is constricted. The patient denies auditory hallucinations or delusions are noted. Insight and judgment at this time are noted to be still impaired. Impulse control is noted to be poor. Coping skills are also noted to be very poor. The patient has been having difficult time to cope with the stress. No side effects to the medications are noted. The patient is stating that she is going to be better off on the Remeron, but she has been started on the Cymbalta last time and patient is going to be reevaluated for the medications. The patient is alert and oriented x3. The patient is fully aware that she is in the hospital. She knows her date of and the patient is able to recall the only two things after 5 minutes. Fund of information seems to be average. DIAGNOSTIC IMPRESSION: Major depressive disorder, recurrent with anxiety symptoms. AXIS II: None. AXIS III: Hypertension, hypercholesterolemia. IMMEDIATE TREATMENT PLAN: The patient's Remeron is going to be changed to 15 mg at bedtime and the patient is going to be placed on 30 mg of Cymbalta and the patient is going to be placed on Klonopin and Seroquel. ESTIMATED LENGTH OF STAY: 5-7 days. DISCHARGE CRITERIA: When she is no longer a threat to self or others and be able to cope up with the stress. [facility]# [id number]
[2018-04-10] MEDS: Multivitamin Tab PO SCH (08:09)
[2018-04-10] MEDS: Sulfamethoxazole/TMP 800/160mg Tab PO SCH ×2 (08:09→16:09)
--- NOTE | 2018-04-10 14:12 | Internal Medicine Prog Note ---
Internal Medicine Subjective - Subjective Service Date: 04/10/18 Patient seen and examined:: with staff Patient is:: awake, verbal, confused Per staff patient has:: tolerating meds Internal Medicine Objective - Results Result Diagrams: 04/08/18 13:36 04/08/18 13:36 Recent Labs: Laboratory Last Values WBC 7.7 Th/cmm (4.8-10.8) 04/08/18 13:36 RBC 4.79 Mil/cmm (3.80-5.20) 04/08/18 13:36 Hgb 14.4 gm/dL (12-16) 04/08/18 13:36 Hct 43.5 % (41.0-60) 04/08/18 13:36 MCV 90.7 fl (81-100) 04/08/18 13:36 MCH 30.1 pg (27.0-31.0) 04/08/18 13:36 MCHC Differential 33.2 pg (28.0-36.0) 04/08/18 13:36 RDW 13.1 % (11.5-20.0) 04/08/18 13:36 Plt Count 239 Th/cmm (150-400) 04/08/18 13:36 MPV 7.0 fl 04/08/18 13:36 Neutrophils % 70.8 % (40.0-80.0) 04/08/18 13:36 Lymphocytes % 21.9 % (20.0-50.0) 04/08/18 13:36 Monocytes % 5.9 % (2.0-10.0) 04/08/18 13:36 Eosinophils % 0.8 % (0.0-5.0) 04/08/18 13:36 Basophils % 0.6 % (0.0-2.0) 04/08/18 13:36 PT 10.3 SECONDS (9.5-11.5) 04/08/18 13:36 INR 0.99 (0.5-1.4) 04/08/18 13:36 PTT (Actin FS) 25.0 SECONDS (26.0-38.0) L 04/08/18 13:36 Sodium 138 mEq/L (136-145) 04/08/18 13:36 Potassium 4.1 mEq/L (3.5-5.1) 04/08/18 13:36 Chloride 104 mEq/L (98-107) 04/08/18 13:36 Carbon Dioxide 26.5 mEq/L (21.0-31.0) 04/08/18 13:36 Anion Gap 11.6 (7.0-16.0) 04/08/18 13:36 BUN 17 mg/dL (7-25) 04/08/18 13:36 Creatinine 0.9 mg/dL (0.6-1.2) 04/08/18 13:36 Est GFR ( Amer) TNP 04/08/18 13:36 Est GFR (Non-Af Amer) TNP 04/08/18 13:36 BUN/Creatinine Ratio 18.9 04/08/18 13:36 Glucose 148 mg/dL (70-105) H 04/08/18 13:36 Hemoglobin A1c % 5.5 % (4.0-6.0) 04/08/18 13:36 Calcium 10.3 mg/dL (8.6-10.3) 04/08/18 13:36 Total Bilirubin 0.6 mg/dL (0.3-1.0) 04/08/18 13:36 AST 23 U/L (13-39) 04/08/18 13:36 ALT 21 U/L (7-52) 04/08/18 13:36 Alkaline Phosphatase 49 U/L (34-104) 04/08/18 13:36 Troponin I < 0.01 ng/mL (0.01-0.05) L 04/08/18 13:36 Total Protein 7.8 gm/dL (6.0-8.3) 04/08/18 13:36 Albumin 4.4 gm/dL (3.7-5.3) 04/08/18 13:36 Globulin 3.4 gm/dL 04/08/18 13:36 Albumin/Globulin Ratio 1.3 (1.0-1.8) 04/08/18 13:36 TSH 1.27 uIU/ml (0.34-5.60) 04/08/18 13:36 Urine Source CLEAN C 04/08/18 13:38 Urine Color YELLOW 04/08/18 13:38 Urine Clarity N (CLEAR) 04/08/18 13:38 Urine pH 6.0 (4.6 - 8.0) 04/08/18 13:38 Ur Specific [place] <= 1.005 (1.005-1.030) 04/08/18 13:38 Urine Protein NEGATIVE mg/dL (NEGATIVE) 04/08/18 13:38 Urine Glucose (UA) NEGATIVE mg/dL (NEGATIVE) 04/08/18 13:38 Urine Ketones NEGATIVE mg/dL (NEGATIVE) 04/08/18 13:38 Urine Blood SMALL (NEGATIVE) H 04/08/18 13:38 Urine Nitrate NEGATIVE (NEGATIVE) 04/08/18 13:38 Urine Bilirubin NEGATIVE (NEGATIVE) 04/08/18 13:38 Urine Urobilinogen 0.2 E.U./dL (0.2 - 1.0) 04/08/18 13:38 Ur Leukocyte Esterase SMALL (NEGATIVE) H 04/08/18 13:38 Urine RBC 0-2 /hpf (0-5) 04/08/18 13:38 Urine WBC 0-2 /hpf (0-5) 04/08/18 13:38 Ur Epithelial Cells FEW /lpf (FEW) 04/08/18 13:38 Urine Bacteria NONE SEEN /hpf (NONE SEEN) 04/08/18 13:38 - Physical Exam Vitals and I&O: Vital Signs Temp 97.4 F 04/10/18 06:28 Pulse 69 04/10/18 06:28 Resp 20 04/10/18 06:28 BP 129/86 04/10/18 06:28 Pulse Ox 98 04/10/18 06:28 Intake & Output 04/09/18 04/10/18 04/10/18 18:59 06:59 18:59 Intake Total 1600 120 Balance 1600 120 Intake: Oral 1600 120 Other: # Voids 4 3 # Bowel Movements 2 Active Medications: Current Medications Acetaminophen (Tylenol) 650 mg PO Q4HR PRN PRN Reason: Mild Pain / Temp above 100 Stop: 06/07/18 21:08 Atorvastatin Calcium (Lipitor) 40 mg PO DAILY [facility]; Protocol Stop: 06/08/18 08:59 Last Admin: 04/10/18 08:09 Dose: 40 mg Clonazepam (Klonopin) 0.5 mg PO BID [facility]; Protocol Stop: 06/09/18 08:59 Last Admin: 04/10/18 08:09 Dose: 0.5 mg Lisinopril (Zestril) 10 mg PO QPM [facility] Stop: 06/08/18 16:59 Last Admin: 04/09/18 17:06 Dose: 10 mg Mirtazapine (Remeron) 15 mg PO HS [facility]; Protocol Stop: 06/08/18 20:59 Last Admin: 04/09/18 21:02 Dose: 15 mg Miscellaneous (Brexpiprazole [Rexulti]) 0.5 mg PO DAILY [facility] Stop: 06/08/18 08:59 Last Admin: 04/09/18 09:32 Dose: Not Given Multivitamins/Vitamin C (Theragran) 1 tab PO DAILY [facility] Stop: 06/08/18 08:59 Last Admin: 04/10/18 08:09 Dose: 1 tab Quetiapine Fumarate (Seroquel) 12.5 mg PO HS [facility]; Protocol Stop: 06/08/18 20:59 Last Admin: 04/09/18 21:02 Dose: 12.5 mg Triamterene/HCTZ (Dyazide) 1 cap PO DAILY [facility] Stop: 06/08/18 08:59 Last Admin: 04/10/18 08:10 Dose: Not Given Trimethoprim/Sulfamethoxazole (Bactrim Ds) 1 tab PO BID [facility] Stop: 06/09/18 08:59 Last Admin: 04/10/18 08:09 Dose: 1 tab Zolpidem Tartrate (Ambien) 5 mg PO HS PRN PRN Reason: Insomnia Stop: 06/07/18 21:08 Last Admin: 04/08/18 22:29 Dose: 5 mg General: alert HEENT: NC/AT, PERRLA Neck: Supple Lungs: CTAB Cardiovascular: RRR, Normal S1, Normal S2 Abdomen: soft, non-tender, non-distended, positive bowel sound Neurological: no change Internal Medicine Assmt/Plan - Assessment Assessment: Current Active Problems Problem Status Onset ANXIETY Acute HTN DYSLIPIDEMIA PSYCHOSIS - Plan Plan: FALL PRECAUTIONS CONTINUE CURRENT PLAN OF CARE
--- NOTE | 2018-04-10 19:49 | Progress Notes ---
DATE: 04/10/2018 PSYCHIATRIC PROGRESS NOTE SUBJECTIVE: Staff was spoken to. The patient is interviewed. Mood is noted to be depressed. Affect is constricted. The patient is isolative and withdrawn. Insight and judgment at this time are noted to be still impaired. Impulse control is noted to be limited. The patient is reporting that she woke up at 3 o'clock in the morning with anxiety. The patient's coping skills at this time are noted to be poor. The patient is currently on clonazepam 0.5 mg b.i.d. and the patient has been also on mirtazapine 15 mg and Seroquel has been given at 12.5 mg at bedtime. The patient is going to be followed up with the supportive therapy. JOB# [id number]
--- NOTE | 2018-04-10 20:23 | Consultation ---
DATE OF CONSULTATION: 04/10/2018 REFERRING PHYSICIAN: Reynaldo Carsuo M.D. TYPE OF CONSULTATION: Psychology. HISTORY OF PRESENT ILLNESS: The patient is a 72-year-old female. The patient resides at home with her family and . The following is by review of the medical record and by patient's self-report. The patient is being admitted due to acute anxiety. Upon interview, the patient stated that she is unable to relax and is restless and frustrated. The patient has had a previous hospitalization here on the Geropsychiatric Unit in November of this year. The patient is stating that she does not feel that the medications are effective. According to the record, the patient's family had requested for her to be rehospitalized for stabilization. The patient admits that she is depressed and anxious. PAST MEDICAL HISTORY: Please see history and physical by Dr. Montgomery. PAST PSYCHIATRIC HISTORY: As above, the patient has a history of major depressive disorder. It is unknown if the patient is under the care of a psychiatrist or psychologist on an outpatient basis. This information needs further clarification. SUBSTANCE ABUSE HISTORY: The patient denied any history. PSYCHOSOCIAL HISTORY: The patient is and lives with her family. The patient's family is very supportive. The patient states that she is a [employer]. Questions regarding occupational or educational history were unanswered. The patient denied any history of physical or sexual abuse. The patient denied any current legal problems. MENTAL STATUS EXAMINATION: The patient appears to be her stated age. The patient's attitude is cooperative. Mood is depressed. Affect is mood congruent and sullen. Eye contact is fair. Speech is spontaneous. The patient denied any auditory or visual hallucinations or delusions. The patient's thought process shows to be linear and logical. The patient's behavior on the unit is easily directable and compliant with care. Impulse control is intact. Concentration is fair to poor. The patient was unable to perform serial 3 subtractions. The patient declined to participate in the memory assessment. Long-term memory seems to be grossly intact. Immediate memory and short term memory need further evaluation. Sensorium is alert and oriented x 3. The patient was able to interpret one of the three proverbs successfully. The other two, the patient was either confused or had not heard of them. Insight is fair to poor. Judgment is fair to poor. DIAGNOSTIC IMPRESSION: AXIS I: 1. Major depressive disorder, recurrent, severe. 2. Anxiety disorder, not otherwise specified. AXIS II: Deferred. AXIS III: Please see history and physical by Dr. Montgomery. TREATMENT PLAN: The patient has been seen by Dr. Caruso for psychiatric evaluation and for the management of the patient's psychotropic medications. According to the medical record, the patient's Remeron is going to be changed to 15 mg at bedtime. The patient is being started on 30 mg of Cymbalta as well as being started on Klonopin and Seroquel. We will provide supportive psychotherapy to include cognitive behavioral therapy to reduce the patient's depression. We will provide a simple anxiety reduction skill. We will rehearse this skill with the patient so that this skill is generalized to her daily use to be able to reduce her anxiety and increase her coping mechanisms. We will provide coping strategies for phase of life issues. The patient's family is very supportive. The patient stated that she desires to discharge home to her family. Thank you, Dr. Caruso for this consult and the opportunity to participate in this patient's care. JOB# [id number] PAWAN
[2018-04-11] MEDS: Sulfamethoxazole/TMP 800/160mg Tab PO SCH ×2 (08:44→16:49)
[2018-04-11] MEDS: Multivitamin Tab PO SCH (08:44)
--- NOTE | 2018-04-11 13:02 | Internal Medicine Prog Note ---
Internal Medicine Subjective - Subjective Service Date: 04/11/18 Patient is:: awake, verbal, confused Per staff patient has:: tolerating meds Internal Medicine Objective - Results Result Diagrams: 04/08/18 13:36 04/08/18 13:36 Recent Labs: Laboratory Last Values WBC 7.7 Th/cmm (4.8-10.8) 04/08/18 13:36 RBC 4.79 Mil/cmm (3.80-5.20) 04/08/18 13:36 Hgb 14.4 gm/dL (12-16) 04/08/18 13:36 Hct 43.5 % (41.0-60) 04/08/18 13:36 MCV 90.7 fl (81-100) 04/08/18 13:36 MCH 30.1 pg (27.0-31.0) 04/08/18 13:36 MCHC Differential 33.2 pg (28.0-36.0) 04/08/18 13:36 RDW 13.1 % (11.5-20.0) 04/08/18 13:36 Plt Count 239 Th/cmm (150-400) 04/08/18 13:36 MPV 7.0 fl 04/08/18 13:36 Neutrophils % 70.8 % (40.0-80.0) 04/08/18 13:36 Lymphocytes % 21.9 % (20.0-50.0) 04/08/18 13:36 Monocytes % 5.9 % (2.0-10.0) 04/08/18 13:36 Eosinophils % 0.8 % (0.0-5.0) 04/08/18 13:36 Basophils % 0.6 % (0.0-2.0) 04/08/18 13:36 PT 10.3 SECONDS (9.5-11.5) 04/08/18 13:36 INR 0.99 (0.5-1.4) 04/08/18 13:36 PTT (Actin FS) 25.0 SECONDS (26.0-38.0) L 04/08/18 13:36 Sodium 138 mEq/L (136-145) 04/08/18 13:36 Potassium 4.1 mEq/L (3.5-5.1) 04/08/18 13:36 Chloride 104 mEq/L (98-107) 04/08/18 13:36 Carbon Dioxide 26.5 mEq/L (21.0-31.0) 04/08/18 13:36 Anion Gap 11.6 (7.0-16.0) 04/08/18 13:36 BUN 17 mg/dL (7-25) 04/08/18 13:36 Creatinine 0.9 mg/dL (0.6-1.2) 04/08/18 13:36 Est GFR ( Amer) TNP 04/08/18 13:36 Est GFR (Non-Af Amer) TNP 04/08/18 13:36 BUN/Creatinine Ratio 18.9 04/08/18 13:36 Glucose 148 mg/dL (70-105) H 04/08/18 13:36 Hemoglobin A1c % 5.5 % (4.0-6.0) 04/08/18 13:36 Calcium 10.3 mg/dL (8.6-10.3) 04/08/18 13:36 Total Bilirubin 0.6 mg/dL (0.3-1.0) 04/08/18 13:36 AST 23 U/L (13-39) 04/08/18 13:36 ALT 21 U/L (7-52) 04/08/18 13:36 Alkaline Phosphatase 49 U/L (34-104) 04/08/18 13:36 Troponin I < 0.01 ng/mL (0.01-0.05) L 04/08/18 13:36 Total Protein 7.8 gm/dL (6.0-8.3) 04/08/18 13:36 Albumin 4.4 gm/dL (3.7-5.3) 04/08/18 13:36 Globulin 3.4 gm/dL 04/08/18 13:36 Albumin/Globulin Ratio 1.3 (1.0-1.8) 04/08/18 13:36 TSH 1.27 uIU/ml (0.34-5.60) 04/08/18 13:36 Urine Source CLEAN C 04/08/18 13:38 Urine Color YELLOW 04/08/18 13:38 Urine Clarity N (CLEAR) 04/08/18 13:38 Urine pH 6.0 (4.6 - 8.0) 04/08/18 13:38 Ur Specific [place] <= 1.005 (1.005-1.030) 04/08/18 13:38 Urine Protein NEGATIVE mg/dL (NEGATIVE) 04/08/18 13:38 Urine Glucose (UA) NEGATIVE mg/dL (NEGATIVE) 04/08/18 13:38 Urine Ketones NEGATIVE mg/dL (NEGATIVE) 04/08/18 13:38 Urine Blood SMALL (NEGATIVE) H 04/08/18 13:38 Urine Nitrate NEGATIVE (NEGATIVE) 04/08/18 13:38 Urine Bilirubin NEGATIVE (NEGATIVE) 04/08/18 13:38 Urine Urobilinogen 0.2 E.U./dL (0.2 - 1.0) 04/08/18 13:38 Ur Leukocyte Esterase SMALL (NEGATIVE) H 04/08/18 13:38 Urine RBC 0-2 /hpf (0-5) 04/08/18 13:38 Urine WBC 0-2 /hpf (0-5) 04/08/18 13:38 Ur Epithelial Cells FEW /lpf (FEW) 04/08/18 13:38 Urine Bacteria NONE SEEN /hpf (NONE SEEN) 04/08/18 13:38 - Physical Exam Vitals and I&O: Vital Signs Temp 98 F 04/11/18 06:53 Pulse 73 04/11/18 06:53 Resp 20 04/11/18 06:53 BP 125/84 04/11/18 06:53 Pulse Ox 98 04/11/18 06:53 Intake & Output 04/10/18 04/11/18 04/11/18 18:59 06:59 18:59 Intake Total 900 120 Balance 900 120 Intake: Oral 900 120 Other: # Voids 3 3 # Bowel Movements 1 Active Medications: Current Medications Acetaminophen (Tylenol) 650 mg PO Q4HR PRN PRN Reason: Mild Pain / Temp above 100 Stop: 06/07/18 21:08 Atorvastatin Calcium (Lipitor) 40 mg PO DAILY [facility]; Protocol Stop: 06/08/18 08:59 Last Admin: 04/11/18 08:43 Dose: 40 mg Clonazepam (Klonopin) 0.5 mg PO BID [facility]; Protocol Stop: 06/09/18 08:59 Last Admin: 04/11/18 08:44 Dose: 0.5 mg Lisinopril (Zestril) 10 mg PO QPM [facility] Stop: 06/08/18 16:59 Last Admin: 04/10/18 16:08 Dose: 10 mg Mirtazapine (Remeron) 15 mg PO HS [facility]; Protocol Stop: 06/08/18 20:59 Last Admin: 04/10/18 20:48 Dose: 15 mg Multivitamins/Vitamin C (Theragran) 1 tab PO DAILY [facility] Stop: 06/08/18 08:59 Last Admin: 04/11/18 08:44 Dose: 1 tab Quetiapine Fumarate (Seroquel) 12.5 mg PO HS [facility]; Protocol Stop: 06/08/18 20:59 Last Admin: 04/10/18 20:48 Dose: 12.5 mg Triamterene/HCTZ (Dyazide) 1 cap PO DAILY [facility] Stop: 06/08/18 08:59 Last Admin: 04/11/18 08:46 Dose: Not Given Trimethoprim/Sulfamethoxazole (Bactrim Ds) 1 tab PO BID [facility] Stop: 06/09/18 08:59 Last Admin: 04/11/18 08:44 Dose: 1 tab Zolpidem Tartrate (Ambien) 5 mg PO HS PRN PRN Reason: Insomnia Stop: 06/07/18 21:08 Last Admin: 04/08/18 22:29 Dose: 5 mg General: alert HEENT: NC/AT, PERRLA Neck: Supple Lungs: CTAB Cardiovascular: RRR, Normal S1, Normal S2 Abdomen: soft, non-tender, non-distended, positive bowel sound Neurological: no change Internal Medicine Assmt/Plan - Assessment Assessment: Current Active Problems Problem Status Onset ANXIETY Acute HTN DYSLIPIDEMIA PSYCHOSIS - Plan Plan: FALL PRECAUTIONS CONTINUE CURRENT PLAN OF CARE
--- NOTE | 2018-04-11 15:02 | Progress Notes ---
DATE: 04/11/2018 SUBJECTIVE: Staff was spoken to. The patient is interviewed. Her mood is little bit depressed. Affect is constricted. The patient's coping skills are noted to be still poor. Sleep and appetite also noted to be limited. No side effects to the medications are noted. The patient has been having difficult time to cope with the stress. The patient is currently on the Klonopin and Seroquel is being given at night time to help her with the paranoia and fixation. PLAN: To continue the patient with the supportive therapy, encouraged the patient to verbalize the concerns rather than to act out. JOB# [id number]
[2018-04-12] MEDS: Sulfamethoxazole/TMP 800/160mg Tab PO SCH ×2 (09:08→16:25)
[2018-04-12] MEDS: Multivitamin Tab PO SCH (09:09)
--- NOTE | 2018-04-12 13:01 | Internal Medicine Prog Note ---
Internal Medicine Subjective - Subjective Service Date: 04/12/18 Patient is:: awake, verbal, confused Per staff patient has:: tolerating meds Internal Medicine Objective - Results Result Diagrams: 04/08/18 13:36 04/08/18 13:36 Recent Labs: Laboratory Last Values WBC 7.7 Th/cmm (4.8-10.8) 04/08/18 13:36 RBC 4.79 Mil/cmm (3.80-5.20) 04/08/18 13:36 Hgb 14.4 gm/dL (12-16) 04/08/18 13:36 Hct 43.5 % (41.0-60) 04/08/18 13:36 MCV 90.7 fl (81-100) 04/08/18 13:36 MCH 30.1 pg (27.0-31.0) 04/08/18 13:36 MCHC Differential 33.2 pg (28.0-36.0) 04/08/18 13:36 RDW 13.1 % (11.5-20.0) 04/08/18 13:36 Plt Count 239 Th/cmm (150-400) 04/08/18 13:36 MPV 7.0 fl 04/08/18 13:36 Neutrophils % 70.8 % (40.0-80.0) 04/08/18 13:36 Lymphocytes % 21.9 % (20.0-50.0) 04/08/18 13:36 Monocytes % 5.9 % (2.0-10.0) 04/08/18 13:36 Eosinophils % 0.8 % (0.0-5.0) 04/08/18 13:36 Basophils % 0.6 % (0.0-2.0) 04/08/18 13:36 PT 10.3 SECONDS (9.5-11.5) 04/08/18 13:36 INR 0.99 (0.5-1.4) 04/08/18 13:36 PTT (Actin FS) 25.0 SECONDS (26.0-38.0) L 04/08/18 13:36 Sodium 138 mEq/L (136-145) 04/08/18 13:36 Potassium 4.1 mEq/L (3.5-5.1) 04/08/18 13:36 Chloride 104 mEq/L (98-107) 04/08/18 13:36 Carbon Dioxide 26.5 mEq/L (21.0-31.0) 04/08/18 13:36 Anion Gap 11.6 (7.0-16.0) 04/08/18 13:36 BUN 17 mg/dL (7-25) 04/08/18 13:36 Creatinine 0.9 mg/dL (0.6-1.2) 04/08/18 13:36 Est GFR ( Amer) TNP 04/08/18 13:36 Est GFR (Non-Af Amer) TNP 04/08/18 13:36 BUN/Creatinine Ratio 18.9 04/08/18 13:36 Glucose 148 mg/dL (70-105) H 04/08/18 13:36 Hemoglobin A1c % 5.5 % (4.0-6.0) 04/08/18 13:36 Calcium 10.3 mg/dL (8.6-10.3) 04/08/18 13:36 Total Bilirubin 0.6 mg/dL (0.3-1.0) 04/08/18 13:36 AST 23 U/L (13-39) 04/08/18 13:36 ALT 21 U/L (7-52) 04/08/18 13:36 Alkaline Phosphatase 49 U/L (34-104) 04/08/18 13:36 Troponin I < 0.01 ng/mL (0.01-0.05) L 04/08/18 13:36 Total Protein 7.8 gm/dL (6.0-8.3) 04/08/18 13:36 Albumin 4.4 gm/dL (3.7-5.3) 04/08/18 13:36 Globulin 3.4 gm/dL 04/08/18 13:36 Albumin/Globulin Ratio 1.3 (1.0-1.8) 04/08/18 13:36 TSH 1.27 uIU/ml (0.34-5.60) 04/08/18 13:36 Urine Source CLEAN C 04/08/18 13:38 Urine Color YELLOW 04/08/18 13:38 Urine Clarity N (CLEAR) 04/08/18 13:38 Urine pH 6.0 (4.6 - 8.0) 04/08/18 13:38 Ur Specific [place] <= 1.005 (1.005-1.030) 04/08/18 13:38 Urine Protein NEGATIVE mg/dL (NEGATIVE) 04/08/18 13:38 Urine Glucose (UA) NEGATIVE mg/dL (NEGATIVE) 04/08/18 13:38 Urine Ketones NEGATIVE mg/dL (NEGATIVE) 04/08/18 13:38 Urine Blood SMALL (NEGATIVE) H 04/08/18 13:38 Urine Nitrate NEGATIVE (NEGATIVE) 04/08/18 13:38 Urine Bilirubin NEGATIVE (NEGATIVE) 04/08/18 13:38 Urine Urobilinogen 0.2 E.U./dL (0.2 - 1.0) 04/08/18 13:38 Ur Leukocyte Esterase SMALL (NEGATIVE) H 04/08/18 13:38 Urine RBC 0-2 /hpf (0-5) 04/08/18 13:38 Urine WBC 0-2 /hpf (0-5) 04/08/18 13:38 Ur Epithelial Cells FEW /lpf (FEW) 04/08/18 13:38 Urine Bacteria NONE SEEN /hpf (NONE SEEN) 04/08/18 13:38 - Physical Exam Vitals and I&O: Vital Signs Temp 97.7 F 04/12/18 07:25 Pulse 59 04/12/18 07:25 Resp 19 04/12/18 07:25 BP 97/64 04/12/18 07:25 Pulse Ox 95 04/12/18 07:25 Intake & Output 04/11/18 04/12/18 04/12/18 18:59 06:59 18:59 Intake Total 1500 500 Output Total 0 Balance 1500 500 Intake: Oral 1500 500 Output: Stool 0 Other: # Voids 3 3 # Bowel Movements 0 0 Active Medications: Current Medications Acetaminophen (Tylenol) 650 mg PO Q4HR PRN PRN Reason: Mild Pain / Temp above 100 Stop: 06/07/18 21:08 Atorvastatin Calcium (Lipitor) 40 mg PO DAILY [facility]; Protocol Stop: 06/08/18 08:59 Last Admin: 04/12/18 09:08 Dose: 40 mg Clonazepam (Klonopin) 0.5 mg PO BID [facility]; Protocol Stop: 06/09/18 08:59 Last Admin: 04/12/18 09:08 Dose: 0.5 mg Lisinopril (Zestril) 10 mg PO QPM [facility] Stop: 06/08/18 16:59 Last Admin: 04/11/18 16:49 Dose: Not Given Mirtazapine (Remeron) 15 mg PO HS [facility]; Protocol Stop: 06/08/18 20:59 Last Admin: 04/11/18 21:57 Dose: 15 mg Multivitamins/Vitamin C (Theragran) 1 tab PO DAILY [facility] Stop: 06/08/18 08:59 Last Admin: 04/12/18 09:09 Dose: 1 tab Quetiapine Fumarate (Seroquel) 12.5 mg PO HS [facility]; Protocol Stop: 06/08/18 20:59 Last Admin: 04/11/18 21:58 Dose: 12.5 mg Triamterene/HCTZ (Dyazide) 1 cap PO DAILY [facility] Stop: 06/08/18 08:59 Last Admin: 04/12/18 09:16 Dose: Not Given Trimethoprim/Sulfamethoxazole (Bactrim Ds) 1 tab PO BID [facility] Stop: 06/09/18 08:59 Last Admin: 04/12/18 09:08 Dose: 1 tab Zolpidem Tartrate (Ambien) 5 mg PO HS PRN PRN Reason: Insomnia Stop: 06/07/18 21:08 Last Admin: 04/08/18 22:29 Dose: 5 mg General: alert HEENT: NC/AT, PERRLA Neck: Supple Lungs: CTAB Cardiovascular: RRR, Normal S1, Normal S2 Abdomen: soft, non-tender, non-distended, positive bowel sound Neurological: no change Internal Medicine Assmt/Plan - Assessment Assessment: Current Active Problems Problem Status Onset ANXIETY Acute HTN DYSLIPIDEMIA PSYCHOSIS - Plan Plan: FALL PRECAUTIONS CONTINUE CURRENT PLAN OF CARE
[2018-04-13] MEDS: Multivitamin Tab PO SCH (08:49)
[2018-04-13] MEDS: Sulfamethoxazole/TMP 800/160mg Tab PO SCH (08:49)
--- NOTE | 2018-04-13 09:28 | Progress Notes ---
DATE: 04/12/2018 PSYCHIATRIC PROGRESS NOTE Staff was spoken to. The patient is interviewed. Mood is noted to be anxious. The patient is isolative and withdrawn. Coping skills are noted to be poor. Insight and judgment are also noted to be still impaired. The patient has been stating this is too noisy on the unit, she could not figure it out what she is going to be doing. ASSESSMENT: The patient is still depressed and anxious. The patient's family has been met and discussed in detail. The patient has been mentioning that the medication is making her to be too sleepy. PLAN: To continue the patient with supportive therapy. I encouraged the patient to verbalize the concerns rather than to act out. [facility]# [id number]
--- NOTE | 2018-04-13 12:13 | Internal Medicine Prog Note ---
Internal Medicine Subjective - Subjective Service Date: 04/13/18 Patient is:: awake, verbal, confused Per staff patient has:: tolerating meds Internal Medicine Objective - Results Result Diagrams: 04/08/18 13:36 04/08/18 13:36 Recent Labs: Laboratory Last Values WBC 7.7 Th/cmm (4.8-10.8) 04/08/18 13:36 RBC 4.79 Mil/cmm (3.80-5.20) 04/08/18 13:36 Hgb 14.4 gm/dL (12-16) 04/08/18 13:36 Hct 43.5 % (41.0-60) 04/08/18 13:36 MCV 90.7 fl (81-100) 04/08/18 13:36 MCH 30.1 pg (27.0-31.0) 04/08/18 13:36 MCHC Differential 33.2 pg (28.0-36.0) 04/08/18 13:36 RDW 13.1 % (11.5-20.0) 04/08/18 13:36 Plt Count 239 Th/cmm (150-400) 04/08/18 13:36 MPV 7.0 fl 04/08/18 13:36 Neutrophils % 70.8 % (40.0-80.0) 04/08/18 13:36 Lymphocytes % 21.9 % (20.0-50.0) 04/08/18 13:36 Monocytes % 5.9 % (2.0-10.0) 04/08/18 13:36 Eosinophils % 0.8 % (0.0-5.0) 04/08/18 13:36 Basophils % 0.6 % (0.0-2.0) 04/08/18 13:36 PT 10.3 SECONDS (9.5-11.5) 04/08/18 13:36 INR 0.99 (0.5-1.4) 04/08/18 13:36 PTT (Actin FS) 25.0 SECONDS (26.0-38.0) L 04/08/18 13:36 Sodium 138 mEq/L (136-145) 04/08/18 13:36 Potassium 4.1 mEq/L (3.5-5.1) 04/08/18 13:36 Chloride 104 mEq/L (98-107) 04/08/18 13:36 Carbon Dioxide 26.5 mEq/L (21.0-31.0) 04/08/18 13:36 Anion Gap 11.6 (7.0-16.0) 04/08/18 13:36 BUN 17 mg/dL (7-25) 04/08/18 13:36 Creatinine 0.9 mg/dL (0.6-1.2) 04/08/18 13:36 Est GFR ( Amer) TNP 04/08/18 13:36 Est GFR (Non-Af Amer) TNP 04/08/18 13:36 BUN/Creatinine Ratio 18.9 04/08/18 13:36 Glucose 148 mg/dL (70-105) H 04/08/18 13:36 Hemoglobin A1c % 5.5 % (4.0-6.0) 04/08/18 13:36 Calcium 10.3 mg/dL (8.6-10.3) 04/08/18 13:36 Total Bilirubin 0.6 mg/dL (0.3-1.0) 04/08/18 13:36 AST 23 U/L (13-39) 04/08/18 13:36 ALT 21 U/L (7-52) 04/08/18 13:36 Alkaline Phosphatase 49 U/L (34-104) 04/08/18 13:36 Troponin I < 0.01 ng/mL (0.01-0.05) L 04/08/18 13:36 Total Protein 7.8 gm/dL (6.0-8.3) 04/08/18 13:36 Albumin 4.4 gm/dL (3.7-5.3) 04/08/18 13:36 Globulin 3.4 gm/dL 04/08/18 13:36 Albumin/Globulin Ratio 1.3 (1.0-1.8) 04/08/18 13:36 TSH 1.27 uIU/ml (0.34-5.60) 04/08/18 13:36 Urine Source CLEAN C 04/08/18 13:38 Urine Color YELLOW 04/08/18 13:38 Urine Clarity N (CLEAR) 04/08/18 13:38 Urine pH 6.0 (4.6 - 8.0) 04/08/18 13:38 Ur Specific [place] <= 1.005 (1.005-1.030) 04/08/18 13:38 Urine Protein NEGATIVE mg/dL (NEGATIVE) 04/08/18 13:38 Urine Glucose (UA) NEGATIVE mg/dL (NEGATIVE) 04/08/18 13:38 Urine Ketones NEGATIVE mg/dL (NEGATIVE) 04/08/18 13:38 Urine Blood SMALL (NEGATIVE) H 04/08/18 13:38 Urine Nitrate NEGATIVE (NEGATIVE) 04/08/18 13:38 Urine Bilirubin NEGATIVE (NEGATIVE) 04/08/18 13:38 Urine Urobilinogen 0.2 E.U./dL (0.2 - 1.0) 04/08/18 13:38 Ur Leukocyte Esterase SMALL (NEGATIVE) H 04/08/18 13:38 Urine RBC 0-2 /hpf (0-5) 04/08/18 13:38 Urine WBC 0-2 /hpf (0-5) 04/08/18 13:38 Ur Epithelial Cells FEW /lpf (FEW) 04/08/18 13:38 Urine Bacteria NONE SEEN /hpf (NONE SEEN) 04/08/18 13:38 - Physical Exam Vitals and I&O: Vital Signs Temp 98.1 F 04/13/18 06:32 Pulse 74 04/13/18 06:32 Resp 20 04/13/18 06:32 BP 114/74 04/13/18 08:46 Pulse Ox 97 04/13/18 06:32 Intake & Output 04/12/18 04/13/18 04/13/18 18:59 06:59 18:59 Intake Total 1000 250 Balance 1000 250 Intake: Oral 1000 250 Other: # Voids 4 # Bowel Movements 1 Stool Characteristics Soft Active Medications: Current Medications Acetaminophen (Tylenol) 650 mg PO Q4HR PRN PRN Reason: Mild Pain / Temp above 100 Stop: 06/07/18 21:08 Atorvastatin Calcium (Lipitor) 40 mg PO DAILY [facility]; Protocol Stop: 06/08/18 08:59 Last Admin: 04/13/18 08:47 Dose: 40 mg Clonazepam (Klonopin) 0.5 mg PO BID [facility]; Protocol Stop: 06/09/18 08:59 Last Admin: 04/13/18 08:49 Dose: 0.5 mg Lisinopril (Zestril) 10 mg PO QPM [facility] Stop: 06/08/18 16:59 Last Admin: 04/12/18 16:25 Dose: 10 mg Mirtazapine (Remeron) 15 mg PO HS [facility]; Protocol Stop: 06/08/18 20:59 Last Admin: 04/12/18 21:10 Dose: 15 mg Multivitamins/Vitamin C (Theragran) 1 tab PO DAILY [facility] Stop: 06/08/18 08:59 Last Admin: 04/13/18 08:49 Dose: 1 tab Quetiapine Fumarate (Seroquel) 12.5 mg PO HS [facility]; Protocol Stop: 06/08/18 20:59 Last Admin: 04/12/18 21:11 Dose: 12.5 mg Triamterene/HCTZ (Dyazide) 1 cap PO DAILY [facility] Stop: 06/08/18 08:59 Last Admin: 04/13/18 08:46 Dose: Not Given Trimethoprim/Sulfamethoxazole (Bactrim Ds) 1 tab PO BID [facility] Stop: 06/09/18 08:59 Last Admin: 04/13/18 08:49 Dose: 1 tab Zolpidem Tartrate (Ambien) 5 mg PO HS PRN PRN Reason: Insomnia Stop: 06/07/18 21:08 Last Admin: 04/08/18 22:29 Dose: 5 mg General: alert HEENT: NC/AT, PERRLA Neck: Supple Lungs: CTAB Cardiovascular: RRR, Normal S1, Normal S2 Abdomen: soft, non-tender, non-distended, positive bowel sound Neurological: no change Internal Medicine Assmt/Plan - Assessment Assessment: Current Active Problems Problem Status Onset ANXIETY Acute HTN DYSLIPIDEMIA PSYCHOSIS - Plan Plan: FALL PRECAUTIONS CONTINUE CURRENT PLAN OF CARE Nutritional Asmnt/Malnutr-PDOC - Dietary Evaluation Malnutrition Findings (Please click <Entered> for more info): Nutritional Asmnt/Malnutrition Start: 04/12/18 13: 53 Text: Status: Complete Freq: Protocol: Document 04/12/18 13:53 NADINE (Rec: 04/12/18 14:08 NADINE [id number]) Nutritional Asmnt/Malnutrition Patient General Information Nutritional Screening Moderate Risk Diagnosis psychosis NOS Pertinent Medical Hx/Surgical Hx HTN, dyslipidemia, anxiety, hysterectomy Subjective Information Pt seen in dining room area waiting for lunch to arrive. Expressed a fine appetitie and happy with her food. Current Diet Order/ Nutrition Support Cardiac Pertinent Medications Lipitor, Theragran, Seroquel Pertinent Labs 04/08: Glucose 148, A1C 5.5%, Trp <0.01 Nutritional Hx/Data Height 5 ft 3 in Height (Calculated Centimeters) 160.0 Current Weight (lbs) 140 lb Weight (Calculated Kilograms) 63.5 Weight (Calculated Grams) 10931.9 [place] Body Weight 115 Body Mass Index (BMI) 24.7 Weight Status Approriate GI Symptoms GI Symptoms None Last BM 04/10 x 1 Difficult in: None Skin Integrity/Comment: Intact Current %PO Good (75-100%) Estimated Nutritional Goals BEE in Kcals: Using Current wt Calories/Kcals/Kg 25-30 Kcals Calculated 0681-5721 Protein: Using Current wt Protein g/k.8-1 Protein Calculated 51-64 Fluid: ml 7120-2925 (1ml/kcal) Nutritional Problem No current Nutrition Prob Problem N/A Malnutrition Related to Morbid Obesity Malnutrition related to morbid obesity No Intervention/Recommendation Comments Continue Cardiac diet order. Monitor PO intake, wt and skin integrity. Pt Low risk, Follow-up in 7 days, 04/19. Expected Outcomes/Goals Expected Outcomes/Goals Pt to continue to consume >75% estimated kcal and energy needs. Reviewed by Orly Hamilton RD
--- NOTE | 2018-04-13 21:27 | Progress Notes ---
DATE: 04/13/2018 PSYCHIATRIC PROGRESS NOTE SUBJECTIVE: Staff was spoken to. The patient is interviewed. Mood is noted to be anxious. Affect is appropriate. Not suicidal or homicidal. Insight and judgment are noted to be improving. Impulse control is noted to be fair. The patient's family ____. The patient is stating that she has been doing fairly well, but could not deal with the noise on the unit and the patient has been treated for the urinary tract infection. Anxiety seems to be stabilizing. The patient is not suicidal or homicidal at this time and hence it is decided to discharge the patient for followup on an outpatient basis. JOB# [id number]
--- NOTE | 2018-04-14 11:46 | Discharge Summary ---
DATE OF DISCHARGE: 04/13/2018 IDENTIFYING DATA: The patient is a 72-year-old woman, , living with her family. JUSTIFICATION OF HOSPITALIZATION: The patient is admitted on voluntary basis in view of her acute anxiety and depression. CHIEF COMPLAINT: "I'm not able to relax and up and down all the time." DIAGNOSES AT TIME OF ADMISSION: AXIS I. Major depressive disorder, recurrent with anxiety symptoms. AXIS II: None. AXIS III: Hypertension and hypercholesterolemia. HISTORY OF PRESENT ILLNESS: Please review the 04/09/2018 dictation done by me. Physical examination at the time of admission was done by Dr. Montgomery. HOSPITAL COURSE AND RESPONSE TO TREATMENT: The patient has been closely monitored on the inpatient unit, provided with supportive psychotherapy. The patient has been provided individual counseling. The patient has been started on Klonopin, which was given 0.5 mg b.i.d. and the patient has been placed on Seroquel 12.5 mg at bedtime. Mirtazapine was given 15 mg. With these medications, the patient was observed and was noted to be doing fairly well and the patient was finally discharged with recommendation that she is going to be seeking treatment on an outpatient basis. MENTAL STATUS EXAMINATION: At the time of discharge, the patient was noted to be anxious. Affect is appropriate. Not suicidal or homicidal. Insight and judgment are noted to be fair. Impulse control is also noted to be fair. The patient has been able to verbalize the concerns rather than to act out at the time of discharge. CONDITION: At the time of discharge is noted to be stable. DIAGNOSES AT THE TIME OF DISCHARGE: AXIS I: Major depressive disorder, recurrent with anxiety symptoms. AXIS II: None. AXIS III: As per Dr. Montgomery. IMMEDIATE TREATMENT PLAN: The patient has been discharged to be followed up on an outpatient basis. PROGNOSIS: At the time of discharge is noted to be fair with the treatment. The patient's family is fully aware that they need to contact my office to set up the followup appointment. [facility]# [id number]
== END 2018-04-13 13:23 | disposition home or self-care (01) | DRG 885 ==
LOC: ER 13:19 → GERO 18:16
PROVIDERS: ADMIT Psychiatry & Neurology Psychiatry; ATTEND Psychiatry & Neurology Psychiatry
DX: F33.3 Major depressive disorder, recurrent, severe with psychotic symptoms (principal); I10 Essential (primary) hypertension; E78.5 Hyperlipidemia, unspecified; F41.9 Anxiety disorder, unspecified; F29 Unspecified psychosis not due to a substance or known physiological condition; E78.00 Pure hypercholesterolemia, unspecified; Z90.710 Acquired absence of both cervix and uterus
CPT/HCPCS: 36415-UA; 71045-TC; 80053-TC; 81001-TC; 83036-90; 84443-TC; 84484-TC; 85025-TC; 85610-TC; 85730-TC; 93005; Z7610